=== PATIENT | female | born 1945 | race Caucasian/White ===

== ENCOUNTER 2020-09-09 07:51 | Outpatient (REF) | payer MEDICARE, OTHER, SELFPAY ==
--- NOTE | 2020-09-09 | MM_ITS ---
EXAMINATION: BONE DENSITOMETRY CLINICAL INDICATION: Osteoporosis. COMPARISON: Previous BD dated 05/07/2016 and baseline BD dated 02/18/2011. TECHNIQUE: Using a [employer] DXA System (software version: 13.1) manufactured by [employer], dual-energy x-ray absorptiometry was performed of the lumbar spine and right hip. Patient with IM daniel in left femur. The images are of good technical quality. Summary results are attached. FINDINGS: AP SPINE L1-L3 (excluding L4): The data of L1-L4 has been changed to exclude the L4 vertebral body, because degenerative changes at this level may cause overestimation of lumbar spine density. Current: BMD 1.069 g/cm2, Z-score 1.2, T-score -0.8, normal, 0.9% increase from previous, 1.4% decrease from baseline (<5% change is not significant). Prior: BMD 1.059 g/cm2. Baseline: BMD 1.084 g/cm2. RIGHT FEMUR, NECK: Current: BMD 0.832 g/cm2, Z-score 0.5, T-score -1.5, osteopenia. Prior: BMD 0.844 g/cm2. Baseline: BMD 0.872 g/cm2. RIGHT FEMUR, TOTAL: Current: BMD 0.783 g/cm2, Z-score 0.0, T-score -1.8, osteopenia, 11.6% decrease from previous, 14.7% decrease from baseline (<5% change is not significant). Prior: BMD 0.886 g/cm2. Baseline: BMD 0.918 g/cm2. IDENTIFIED RISK FACTORS: Early menopause, height loss, bilateral oophorectomy, history of fracture (adult), recurrent falls, secondary osteoporosis. HISTORY OF FRACTURE: Femur, ankle. No insufficiency fracture reported. MEDICATIONS: Calcium or multivitamin. Vitamin D. MM/XR DEXA axial skeleton IMPRESSION: 1. DIAGNOSIS: Osteopenia based on the lowest T-score value of -1.8 in the total femur applying World Health Organization criteria. 2. 10-YEAR FRACTURE RISK PREDICTION, FRAX: Major osteoporotic fracture (clinical spine, forearm, hip or shoulder) 15.5%. Hip fracture 2.6%. 3. Treatment Recommendations: NOF guidelines recommend consideration for treatment in postmenopausal women and men age 50 and older presenting with the following: -A hip or vertebral (clinical or morphometric) fracture. -T-score less than or equal to -2.5 at the femoral neck or spine after appropriate evaluation to exclude secondary causes. -Low bone mass at the hip or spine and a 10-year fracture probability by FRAX of greater than or equal to 3% for hip fracture or greater than or equal to 20% for major osteoporotic fracture based on the [place] adapted WHO algorithm. 4. Other Recommendations: All treatment decisions require clinical judgment and consideration of individual patient factors, including patient preferences, comorbidities, previous drug use, risk factors not captured in the FRAX model (e.g. frailty, falls, vitamin D deficiency, increased bone turnover, interval significant decline in bone density) and possible under or overestimation of fracture risk by FRAX. Additional medical evaluation for secondary cause of low bone mineral density may be appropriate. FUTURE SCAN RECOMMENDATION: People with diagnosed cases of osteoporosis or at high risk for fracture should have regular bone mineral density tests. For patients eligible for Medicare, routine testing is allowed once every 2 years. The testing frequency can be increased to one year for patients who have rapidly progressing disease, those who are receiving or discontinuing medical therapy to restore bone mass, or have additional risk factors.
== END 2020-09-09 07:52 | disposition home or self-care (01) ==
LOC: HO.MAMMO 07:51
PROVIDERS: PCP Internal Medicine; Visit Provider Internal Medicine Endocrinology, Diabetes & Metabolism
DX: M81.0 Age-related osteoporosis without current pathological fracture (principal)
CPT/HCPCS: 77080

== ENCOUNTER → 2020-09-15 08:12 | Outpatient (BNVA) | payer MEDICARE, OTHER, SELFPAY | PROVIDERS: PCP Internal Medicine; Visit Provider Internal Medicine Endocrinology, Diabetes & Metabolism | DX: Z13.89 Encounter for screening for other disorder (principal) | CPT/HCPCS: Q3014 ==

== ENCOUNTER 2021-01-08 07:15 | Outpatient (REF) | payer MEDICARE, OTHER, SELFPAY ==
[2021-01-08 08:12] LABS: Basophils Percent Auto 0.3 % (0-2); Imm Gran Abs Auto 0.01 X10*3/uL (0.00-0.03); Imm Gran Pct Auto 0.3 % (0.0-0.4); Mean Corpuscular Volume 94.8 fL (80-98); Monocytes Absolute Auto 0.4 X10*3/uL (0.1-1.2); Red Cell Distribution Width 12.7 % (11.0-16.0)
[2021-01-08 08:13] LABS: Eosinophils Percent Auto 0.3 % (0-4); Hematocrit 39.9 % (37-47); Hemoglobin 13.8 g/dl (12.0-16.0); Lymphocytes Absolute Auto 1.2 X10*3/uL (1.2-4.9); Lymphocytes Percent Auto 30.4 % (20-40); Mean Corpuscular HGB Conc 34.6 g/dl (31.0-35.0); Mean Corpuscular Hemoglobin 32.8 pg (27.0-33.0); Mean Platelet Volume 10.6 fL (9.4-12.3); Monocytes Percent Auto 8.9 % (2-11); Neutrophils Absolute Auto 2.4 X10*3/uL (2.0-8.3); Neutrophils Percent Auto 59.8 % (45-73); Red Blood Count 4.21 X10*6/uL (4.20-5.50)
[2021-01-08 08:15] LABS: MANUAL DIFF FLAG NO
[2021-01-08 08:40] LABS: Alanine Aminotransferase 26 U/L (0-31); Albumin Level 4.6 g/dL (3.5-5.0); Alkaline Phosphatase 77 U/L (39-117); Anion Gap 14 (12-20); Aspartate Amino Transferase 37 U/L (5-31); Bilirubin Total 1.2 mg/dL (0.0-1.0); Blood Urea Nitrogen 10 mg/dL (9-16); Calcium 9.4 mg/dL (8.4-10.2); Carbon Dioxide 27 mmol/L (22-29); Chloride 104 mmol/L (96-108); Cholesterol 184 mg/dL; Estimated Glomerular Filt Rate > 60; Glucose Fasting 96 mg/dL (60-99); HDL Cholesterol 77 mg/dL; LDL Cholesterol Calculated 96 mg/dl; Sodium 141 mmol/L (135-145); Total Protein 7.1 g/dL (6.5-8.0); Triglycerides 59 mg/dL
[2021-01-08 08:50] LABS: Platelet Count 131 X10*3/uL (160-400)
[2021-01-08 09:04] LABS: Free T4 (Free Thyroxine) 0.79 ng/dL (0.71-1.85); Thyroid Stimulating Hormone 0.92 uIU/mL (0.32-4.0); Vitamin D 25-OH Total 63.8 ng/mL (>30)
[2021-01-09 18:06] LABS: Folate > 20.0 ng/mL (> or = 4.0); Vitamin B12 268 pg/mL (200-900)
[2021-01-13 21:51] LABS: N-Telopeptide 44 (see note); NTXCreaRU 104 mg/dL (20-275)
== END 2021-01-08 07:16 | disposition home or self-care (01) ==
LOC: HO.LAB 07:15
PROVIDERS: Absent Provider Internal Medicine Endocrinology, Diabetes & Metabolism; PCP Internal Medicine; Visit Provider Internal Medicine
DX: D47.2 Monoclonal gammopathy (principal); I10 Essential (primary) hypertension; M81.0 Age-related osteoporosis without current pathological fracture; E04.2 Nontoxic multinodular goiter; E78.00 Pure hypercholesterolemia, unspecified
CPT/HCPCS: 36415; 80053; 80061; 82306; 82523; 82607; 82746; 84439; 84443; 85025

== ENCOUNTER 2021-02-19 12:19 | Outpatient (REF) | payer MEDICARE, OTHER, SELFPAY ==
--- NOTE | ~2021-02-19 | US_ITS ---
EXAMINATION: US THYROID CLINICAL INFORMATION: Follow up nodules. COMPARISON: None TECHNIQUE: Linear transducer grayscale and color Doppler examination with attention to the region of the thyroid. FINDINGS: SIZE: Measurements of the thyroid lobes and nodules are given in sagittal, anteroposterior and transverse dimensions, respectively. Right Thyroid Lobe: 4.0 x 1.7 x 1.6 cm, volume 5.9 mL. Previously, it measured 3.8 x 1.4 x 1.7 cm and volume 4.5 mL. Parenchyma: The gland echotexture is homogeneous. Thyroid vascularity is increased. Left Thyroid Lobe: 4.5 x 1.1 x 1.2 cm, volume 3.1 mL. Previously, it measured 4.3 x 1.1 x 1.2 cm and volume 2.8 mL Parenchyma: The gland echotexture is homogeneous. Thyroid vascularity is hypervascular. Isthmus: 0.2 cm in maximum AP dimension. Estimated total number of nodules greater than or equal to 1 cm: one. Pilot Teacher nodules are described as follows: 1. Location: Right lower pole. Size: 2.1 x 1.4 x 1.8 cm, volume 2.8 mL. Previous: 1.9 x 1.5 x 1.5 cm and volume 2.2 mL Nodule characteristics: Composition: Solid (2). Echogenicity: Isoechoic (1). Shape: Not taller than wide (0). Margins: Smooth (0). Echogenic Foci: None (0). ACR TI-RADS total points: 3. ACR TI-RADS category: 3. 2. Location: Left lateral midpole. Size: 0.4 x 0.2 x 0.4 cm, volume 0.02 mL. Previous: 0.3 x 0.2 x 0.4 cm and volume 0.01 mL Nodule characteristics: Composition: Solid (2). Echogenicity: Hypoechoic (1). Shape: Not taller than wide (0). Margins: Smooth (0). Echogenic Foci: None (0). ACR TI-RADS total points: 4. ACR TI-RADS category: 4. NODES: No lymphadenopathy is seen in the tissue surrounding the thyroid gland. US/US thyroid IMPRESSION: 1. Two solitary nodules in the right lower pole and left midpole. The largest nodule at the right lower pole shows very minimal increase in size but no change in the echotexture, margins or composition. This nodule has been previously biopsied on 03/27/2020. 2. Recommend continued follow up. ACR TI-RADS RECOMMENDATION REFERENCE: Ultrasound-guided fine-needle aspiration, followup ultrasound, no further follow up. * TR1 (0 point) and TR 2 (2 points): No FNA or follow up. * TR3 (3 points): FNA if more than or equal to 2.5 cm in maximum dimension, follow up ultrasound in 1, 3 and 5 years if 1.5 to 2.4 cm in maximum dimension. * TR4 (4-6 points): FNA if more than or equal to 1.5 cm in maximum dimension, follow up ultrasound in 1, 2, 3 and 5 years if 1 to 1.4 cm in maximum dimension. * TR5 (more than or equal to 7 points): FNA if more than or equal to 1 cm in maximum dimension, follow up ultrasound every year for 5 years if 0.5 to 0.9 cm in maximum dimension. * TR3, TR4 or TR5 nodules that are below the size threshold for follow up receive no follow up.
== END 2021-02-19 12:20 | disposition home or self-care (01) ==
LOC: HO.US 12:19
PROVIDERS: Visit Provider Internal Medicine Endocrinology, Diabetes & Metabolism
DX: E04.2 Nontoxic multinodular goiter (principal)
CPT/HCPCS: 76536

== ENCOUNTER → 2021-03-16 08:19 | Outpatient (BNVA) | payer MEDICARE, OTHER, SELFPAY | PROVIDERS: PCP Internal Medicine; Referring Provider Internal Medicine; Visit Provider Internal Medicine Endocrinology, Diabetes & Metabolism | DX: E04.2 Nontoxic multinodular goiter (principal); M81.0 Age-related osteoporosis without current pathological fracture | CPT/HCPCS: 99212 ==

== ENCOUNTER 2021-03-16 08:52 | Outpatient (REF) | payer MEDICARE, OTHER, SELFPAY ==
[2021-03-16 10:44] LABS: Albumin Level 4.2 g/dL (3.5-5.0); Calcium 9.5 mg/dL (8.4-10.2)
[2021-03-16 11:13] LABS: Free T4 (Free Thyroxine) 0.95 ng/dL (0.71-1.85); Thyroid Stimulating Hormone 0.71 uIU/mL (0.32-4.0); Vitamin D 25-OH Total 62.1 ng/mL (>30)
[2021-03-21 09:57] LABS: N-Telopeptide 29 (see note); NTXCreaRU 71 mg/dL (20-275)
== END 2021-03-16 08:53 | disposition home or self-care (01) ==
LOC: HO.10HDL 08:52
PROVIDERS: Visit Provider Internal Medicine Endocrinology, Diabetes & Metabolism
DX: M81.0 Age-related osteoporosis without current pathological fracture (principal); E04.2 Nontoxic multinodular goiter; Z79.899 Other long term (current) drug therapy
CPT/HCPCS: 36415; 82040; 82306; 82310; 82523; 84439; 84443; 99212

== ENCOUNTER 2021-04-30 07:21 | Outpatient (REF) | payer MEDICARE, OTHER, SELFPAY ==
--- NOTE | ~2021-04-30 | MM_ITS ---
EXAMINATION: MM SCREENING DIGITAL BREAST TOMOSYNTHESIS, BILATERAL CLINICAL INFORMATION: Screening. Asymptomatic. The lifetime risk of breast cancer based on the Tyrer-Cuzick Model is 2.9%. COMPARISON: Mammography: April 25, 2020 and studies dating back to November 17, 2013 TECHNIQUE: Digital breast tomosynthesis is performed in both the craniocaudal and mediolateral oblique views along with computer-aided detection (CAD). Synthesized 2D images are generated from the tomosynthesis. FINDINGS: There are scattered areas of fibroglandular density (ACR BI-RADS breast composition Category b). There are no significant masses, abnormal calcifications, or other abnormalities. MM/MM tomosynthesis screening BI IMPRESSION: There are no significant changes from prior study. ASSESSMENT: BI-RADS 1: Negative RECOMMENDATION: Routine annual mammography screening. This patient's information was entered into a reminder system with a target due date for their next mammogram.
== END 2021-04-30 07:22 | disposition home or self-care (01) ==
LOC: HO.MAMMO 07:21
PROVIDERS: PCP Internal Medicine; Visit Provider Internal Medicine
DX: Z12.31 Encounter for screening mammogram for malignant neoplasm of breast (principal)
CPT/HCPCS: 77063; 77067

== ENCOUNTER 2021-06-25 09:51 | Outpatient (REF) | payer MEDICARE, OTHER, SELFPAY ==
[2021-06-25 10:13] LABS: COVID-19 Test Positive (Negative); IDNOW Serial# 08D9AD1C
== END 2021-06-25 09:52 | disposition home or self-care (01) ==
LOC: HO.LAB 09:51
PROVIDERS: PCP Internal Medicine; Visit Provider Internal Medicine
DX: Z20.822 Contact with and (suspected) exposure to COVID-19 (principal)
CPT/HCPCS: 36415; 87635; C9803

== ENCOUNTER 2021-07-03 12:39 | Outpatient (REF) | payer MEDICARE, OTHER, SELFPAY ==
[2021-07-03 14:33] LABS: COVID-19 Test Positive (Negative)
== END 2021-07-03 12:40 | disposition home or self-care (01) ==
LOC: HO.LAB 12:39
PROVIDERS: PCP Internal Medicine; Visit Provider Internal Medicine
DX: Z20.822 Contact with and (suspected) exposure to COVID-19 (principal)
CPT/HCPCS: 36415; 87635; C9803

== ENCOUNTER 2021-07-07 12:52 | Outpatient (REF) | payer MEDICARE, OTHER, SELFPAY ==
[2021-07-07 13:51] LABS: COVID-19 Test Positive (Negative)
== END 2021-07-07 12:53 | disposition home or self-care (01) ==
LOC: HO.LAB 12:52
PROVIDERS: PCP Internal Medicine; Visit Provider Internal Medicine
DX: Z20.822 Contact with and (suspected) exposure to COVID-19 (principal)
CPT/HCPCS: 36415; 87635

== ENCOUNTER → 2022-03-16 13:49 | Outpatient (BNVA) | payer MEDICARE, OTHER, SELFPAY | PROVIDERS: PCP Internal Medicine; Visit Provider Internal Medicine Endocrinology, Diabetes & Metabolism | DX: E04.2 Nontoxic multinodular goiter (principal); M81.0 Age-related osteoporosis without current pathological fracture | CPT/HCPCS: 99212 ==

== ENCOUNTER 2022-05-04 12:33 | Outpatient (REF) | payer MEDICARE, OTHER, SELFPAY ==
--- NOTE | ~2022-05-04 | MM_ITS ---
EXAMINATION: MM SCREENING DIGITAL BREAST TOMOSYNTHESIS, BILATERAL CLINICAL INFORMATION: Screening. Asymptomatic. The lifetime risk of breast cancer based on the Tyrer-Cuzick Model is 3%. COMPARISON: Mammography: 04/30/2021, 04/25/2020, 04/20/2019 TECHNIQUE: Digital breast tomosynthesis is performed in both the craniocaudal and mediolateral oblique views along with computer-aided detection (CAD). Synthesized 2D images are generated from the tomosynthesis. FINDINGS: There are scattered areas of fibroglandular density (ACR BI-RADS breast composition Category b). There are no significant masses, abnormal calcifications, or other abnormalities. Parenchymal pattern is similar to prior studies. MM/MM tomosynthesis screening BI IMPRESSION: No mammographic evidence of malignancy. ASSESSMENT: BI-RADS 1: Negative RECOMMENDATION: Routine annual mammography screening. This patient's information was entered into a reminder system with a target due date for their next mammogram.
== END 2022-05-04 12:34 | disposition home or self-care (01) ==
LOC: HO.MAMMO 12:33
PROVIDERS: Visit Provider Internal Medicine Endocrinology, Diabetes & Metabolism
DX: Z12.31 Encounter for screening mammogram for malignant neoplasm of breast (principal)
CPT/HCPCS: 77063; 77067

== ENCOUNTER 2022-06-08 16:21 | Outpatient (REF) | payer MEDICARE, OTHER, SELFPAY ==
--- NOTE | ~2022-06-08 | US_ITS ---
EXAMINATION: US THYROID CLINICAL INFORMATION: Nontoxic multinodular goiter. COMPARISON: Ultrasound soft tissue head/neck thyroid dated 02/19/2021 and 01/08/2020. TECHNIQUE: Linear transducer grayscale and color Doppler examination with attention to the region of the thyroid. FINDINGS: SIZE: Measurements of the thyroid lobes and nodules are given in sagittal, anteroposterior and transverse dimensions respectively. Right Thyroid Lobe: 3.3 x 1.8 x 1.2 cm, volume 3.6 mL. Previously 4.0 x 1.7 x 1.6 cm, volume 5.9 mL. Parenchyma: The gland echotexture is homogeneous. Thyroid vascularity is normal. Left Thyroid Lobe: 4.2 x 1.0 x 1.1 cm, volume 2.6 mL. Previously 4.5 x 1.1 x 1.2 cm, volume 3.1 mL. Parenchyma: The gland echotexture is homogeneous. Thyroid vascularity is increased. Isthmus: 0.3 cm in maximum AP dimension. Previously 0.2 cm. Estimated total number of nodules greater than or equal to 1 cm: 1. Ophthalmic Lens Inspector nodules are described as follows: 1. Location: Right lateral inferior. Size: 1.8 x 1.2 x 1.6 cm, volume 1.8 mL. Previously: 2.1 x 1.4 x 1.8 cm, volume 2.8 mL. Nodule characteristics: Composition: Solid/almost completely solid (2). Echogenicity: Isoechoic (1). Shape: Not taller than wide (0). Margins: Smooth (0). Echogenic Foci: None (0). ACR TI-RADS total points: 3. Previous: 3. ACR TI-RADS category: 3. Previous: 3. Significant change in size (>/= 20% in 2 dimensions and minimal increase of 2 mm or 50% or greater increase in volume): No change. Change in features: No change. Change in ACR TI-RADS risk category: No change. 2. Location: Left mid. Size: 0.3 x 0.2 x 0.3 cm, volume 0.01 mL. Previously: 0.4 x 0.2 x 0.4 cm, volume 0.02 mL. Nodule characteristics: Composition: Mixed cystic and solid (1). Echogenicity: Hypoechoic (2). Shape: Not taller than wide (0). Margins: Smooth (0). Echogenic Foci: None (0). ACR TI-RADS total points: 3. Previous: 4. ACR TI-RADS category: 3. Previous: 4. Significant change in size (>/= 20% in 2 dimensions and minimal increase of 2 mm or 50% or greater increase in volume): No change. Change in features: No change. Change in ACR TI-RADS risk category: Minimal change but nonsuspicious. NODES: No lymphadenopathy is seen in the tissue surrounding the thyroid gland. US/US thyroid IMPRESSION: Small thyroid lobes with small nodules essentially unchanged from previous study. ACR TI-RADS RECOMMENDATION REFERENCE: Ultrasound-guided fine-needle aspiration, followup ultrasound, no further follow up. * TR1 (0 point) and TR 2 (2 points): No FNA or follow up * TR3 (3 points): FNA if more than or equal to 2.5 cm in maximum dimension, followup ultrasound in 1, 3 and 5 years if 1.5 to 2.4 cm in maximum dimension. * TR4 (4-6 points): FNA if more than or equal to 1.5 cm in maximum dimension, followup ultrasound in 1, 2, 3 and 5 years if 1 to 1.4 cm in maximum dimension. * TR5 (more than or equal to 7 points): FNA if more than or equal to 1 cm in maximum dimension, followup ultrasound every year for 5 years if 0.5 to 0.9 cm in maximum dimension. * TR3, TR4 or TR5 nodules that are below the size threshold for follow up receive no follow up.
== END 2022-06-08 16:22 | disposition home or self-care (01) ==
LOC: HO.US 16:21
PROVIDERS: Visit Provider Internal Medicine Endocrinology, Diabetes & Metabolism
DX: E04.2 Nontoxic multinodular goiter (principal)
CPT/HCPCS: 76536

== ENCOUNTER 2022-10-08 14:35 | Outpatient (REF) | payer MEDICARE, OTHER, SELFPAY ==
--- NOTE | ~2022-10-08 | MM_ITS ---
EXAMINATION: BONE DENSITOMETRY CLINICAL INDICATION: Age-related osteoporosis without current pathological fracture. COMPARISON: Previous BD dated 09/05/2018, left hip; 05/07/2016, spine and baseline BD dated 02/18/2011. TECHNIQUE: Using a [employer] DXA System (software version: 13.1) manufactured by [employer], dual-energy x-ray absorptiometry was performed of the lumbar spine and left hip. The images are of good technical quality. Summary results are attached. FINDINGS: AP SPINE L1-L4: Current: BMD 1.223 g/cm2, Z-score 2.5, T-score 0.4, normal, 12.2% increase from previous, 7.2% increase from baseline (<5% change is not significant). Prior: BMD 1.090 g/cm2. Baseline: BMD 1.141 g/cm2. LEFT FEMUR, NECK: Current: BMD 0.708 g/cm2, Z-score -0.2, T-score -2.4, osteopenia. Prior: BMD 0.942 g/cm2. Baseline: BMD 0.903 g/cm2. LEFT FEMUR, TOTAL: Current: BMD 0.703 g/cm2, Z-score -0.4, T-score -2.4, osteopenia, 14.2% decrease from previous, 22.7% decrease from baseline (<5% change is not significant). Prior: BMD 0.819 g/cm2. Baseline: BMD 0.909 g/cm2. IDENTIFIED RISK FACTORS: Osteoporosis, height loss, history of fracture (adult), hysterectomy, bilateral oophorectomy. Early menopause, secondary osteoporosis. HISTORY OF FRACTURE: Femur. Ankle. MEDICATIONS: Bisphosphonates. Calcium supplements or multivitamin, vitamin D. MM/XR DEXA axial skeleton IMPRESSION: 1. DIAGNOSIS: Osteopenia based on the lowest T-score value of -2.4 in the femoral neck and total femur applying World Health Organization criteria. 2. 10-YEAR FRACTURE RISK PREDICTION, FRAX: Not performed in this patient on estrogen or bone building treatments. 3. Treatment Recommendations: NOF guidelines recommend consideration for treatment in postmenopausal women and men age 50 and older presenting with the following: -A hip or vertebral (clinical or morphometric) fracture. -T-score less than or equal to -2.5 at the femoral neck or spine after appropriate evaluation to exclude secondary causes. -Low bone mass at the hip or spine and a 10-year fracture probability by FRAX of greater than or equal to 3% for hip fracture or greater than or equal to 20% for major osteoporotic fracture based on the [place] adapted WHO algorithm. 4. Other Recommendations: All treatment decisions require clinical judgment and consideration of individual patient factors, including patient preferences, comorbidities, previous drug use, risk factors not captured in the FRAX model (e.g. frailty, falls, vitamin D deficiency, increased bone turnover, interval significant decline in bone density) and possible under or overestimation of fracture risk by FRAX. Additional medical evaluation for secondary cause of low bone mineral density may be appropriate. FUTURE SCAN RECOMMENDATION: People with diagnosed cases of osteoporosis or at high risk for fracture should have regular bone mineral density tests. For patients eligible for Medicare, routine testing is allowed once every 2 years. The testing frequency can be increased to one year for patients who have rapidly progressing disease, those who are receiving or discontinuing medical therapy to restore bone mass, or have additional risk factors.
== END 2022-10-08 14:36 | disposition home or self-care (01) ==
LOC: HO.MAMMO 14:35
PROVIDERS: PCP Internal Medicine; Visit Provider Internal Medicine
DX: M81.0 Age-related osteoporosis without current pathological fracture (principal)
CPT/HCPCS: 77080

== ENCOUNTER → 2023-03-16 13:40 | Outpatient (BNVA) | payer MEDICARE, OTHER, SELFPAY | PROVIDERS: PCP Internal Medicine; Visit Provider Internal Medicine Endocrinology, Diabetes & Metabolism | DX: E04.2 Nontoxic multinodular goiter (principal); M81.0 Age-related osteoporosis without current pathological fracture | CPT/HCPCS: 99212 ==

== ENCOUNTER 2023-06-17 13:11 | Outpatient (AMB) | payer MEDICARE, OTHER, SELFPAY ==
[2023-06-17 13:14] VITALS: BP 122/78; PULSE 78; O2SAT 98; BMI 19.6
--- NOTE | 2023-06-17 13:14 | A.OFFPC_ITS ---
Vital Signs 06/17/23 13:14 Height 5 ft 3 in Weight 110 lb 10.753 oz BMI 19.6 BP 122/78 Blood Pressure Location Lt brachial Position Sitting Pulse 78 Pulse Source Pulse Oximeter Temp Source Skin Pulse Oximetry (%) 98 Oxygen Delivery Method Room Air Intake Visit Reasons: s/p fall Intake Note: pt states fall [id number] ago causing lower back pain Property Specialist Required: No Allergies horseradish [HORSERADISH] Allergy (Severe, Verified 06/17/23 13:29) Involuntary Spasms erythromycin base [ERYTHROMYCIN BASE] Allergy (Intermediate, Verified 06/17/23 13:29) Hives naproxen [From Aleve] Allergy (Intermediate, Verified 06/17/23 13:29) Hives beet [BEET] Allergy (Unknown, Verified 06/17/23 13:29) Unknown milk [MILK] Allergy (Unknown, Verified 06/17/23 13:29) Stomach pain, Vomits nut - unspecified [nut] Allergy (Unknown, Verified 06/17/23 13:29) Unknown raspberry Allergy (Unknown, Verified 06/17/23 13:29) Unknown sunflower seed Allergy (Unknown, Verified 06/17/23 13:29) Unknown aspirin [ASA] Adverse Reaction (Intermediate, Verified 06/17/23 13:29) Nose Bleed TURNIP Allergy (Unknown, Uncoded 06/17/23 13:29) Unknown Medication List - Last Reconciled 06/17/23 by MITA Magaña alendronate 70 mg PO QWEEK 90 days calcium carbonate (Calcium) 600 mg PO BID 90 days cholecalciferol (vitamin D3) 50 mcg PO DAILY 90 days epinephrine (EpiPen 2-Reid) 0.3 mg (0.3 mL) IM Q4H PRN lisinopril 20 mg PO DAILY vitamins A,C,B-[id number]-[id number] 4,296 mcg-226 mg-90 mg (PreserVision AREDS) 1 cap PO BID Tobacco use date assessed: 06/17/23 Fall risk assessment: 1 Fall in past year Last assessed Fall Risk: 06/17/23 Dental Screening Dental Screen Date: 06/17/23 HPI s/p fall HPI Details Patient is a 77-year-old female presents today for an office visit after sustaining a fall 2 weeks ago[address] of [address] Kellogg. Medical history significant for osteoporosis-followed by endocrinology, hypertension, MGUS among others. Patient reports that she was trying to feed her dogs and then fell on her bilateral buttocks and started with low back pain. She denies hitting her head, no loss of consciousness. She is not on blood thinner. She reports that she was taking Tylenol or ibuprofen with improvement in her pain. She reports pain is not bed today, she did not have to take anything for pain today or yesterday. Reports that pain is on her lower back across back, pain does not radiate, no numbness or tingling, no changes in bowel/bladder. She reports that pain is improving. Patient is accompanied by her who reports that patient drinks whiskey 1 3/4 L/week and would like treatment for this. [facility] Medical History Coronavirus infection History of fracture of femur Hypertension Impaired glucose tolerance Knee osteoarthritis MGUS (monoclonal gammopathy of unknown significance) Non-toxic multinodular goiter Osteoporosis Screening for diabetes mellitus Surgical History History of ankle surgery History of cataract surgery History of colonoscopy History of knee replacement procedure of right knee History of open reduction and internal fixation (ORIF) procedure History of tonsillectomy History of total left knee replacement Hx of hysterectomy Hx of removal of cyst Status post fine needle aspiration Family History Father HTN (hypertension) Mother No problems noted. Social History Housing: House Alcohol intake: current Alcohol intake frequency: a few times a week Patient Tobacco Use Status: Never used Tobacco e-Cigarette/Vaping Use: Never Used Second Hand Smoke Exposure: No service: No Current occupational status: employed and retired Cognitive needs: No Hearing needs: No Vision needs: Yes Questionnaire PHQ-9 Over the last 2 weeks, how often have you been bothered by any of the following problems? 1. Little interest or pleasure in doing things: not at all 2. Feeling down, depressed, or hopeless: not at all 3. Trouble falling or staying asleep, or sleeping too much: not at all 4. Feeling tired or having little energy: not at all 5. Poor appetite or overeating: not at all 6. Feeling bad about yourself - or that you are a failure or have let yourself or your family down: not at all 7. Trouble concentrating on things, such as reading the newspaper or watching television: not at all 8. Moving or speaking so slowly that other people could have noticed. Or the opposite - being so fidgety or restless that you have been moving around a lot more than usual: not at all 9. Thoughts that you would be better off or of hurting yourself in some way: not at all Total score: 0 Depression Screening Interpretation: Negative 90066 - PHQ-9 Billing: Yes Source: Developed by Drs. Jaguar Fernández, Lima Hauser, Bola See and colleagues, with an educational selena from [employer]. Thrive Questionnaire Date Thrive assessed: 12/16/22 AUDIT C Alcohol Use Questionnaire (AUDIT-C) 1. How often do you have a drink containing alcohol?: 4 or more times a week 2. How many drinks containing alcohol do you have on a typical day when you are drinking?: 1 or 2 3. How often do you have six or more drinks on one occasion?: Never Total Score: 4 Score Reviewed/Action Taken: Yes JOSHUA-7 AMB Questionnaire JOSHUA-7 Date JOSHUA - 7 assessed: 12/16/22 Source: Developed by Drs. Jaguar Fernández, oBla Sandra and colleagues, with an educational selena from [employer]. Review of Systems Const Denies body aches, Denies chills, Denies fever(s) and Denies headache(s) Eyes Denies change in vision ENT Denies dizziness, Denies otalgia, Denies headache(s), Denies nasal discharge, Denies sinus pain and Denies sore throat Card Denies chest pain, Denies edema, Denies lightheadedness and Denies dyspnea Resp Denies cough, Denies dyspnea and Denies wheezing GI Denies abdominal pain Denies dysuria Musc Reports back pain, Denies myalgias, Denies numbness and Denies tingling Skin/Breast Denies rash Neuro Denies dizziness, Denies headache(s), Denies numbness and Denies tingling Aller/Immun Denies wheezing Physical exam (Primary Care) Vital Signs: Last Vital Signs Pulse 78 06/17/23 13:14 BP 122/78 06/17/23 13:14 Pulse Ox 98 06/17/23 13:14 Oxygen Delivery Method Room Air 06/17/23 13:14 BMI result Body Mass Index 19.6 Tobacco/Smoking Status: Tobacco use Status Tobacco use date assessed 06/17/23 06/17/23 13:21 Patient Tobacco Use Status Never used Tobacco 06/17/23 13:21 e-Cigarette/Vaping Use Never Used 06/17/23 13:21 PHQ-9: PHQ-9 Score PHQ-9: Total score 0 06/17/23 13:21 Depression Screening Interpretation: Negative Thrive Assessment: Date of Thrive Assessment Date Thrive assessed 12/16/22 06/17/23 13:21 Const Other: Patient ambulates with a cane General: cooperative and no acute distress Orientation/consciousness: patient oriented x3 HENMT Head: Yes normocephalic and Yes atraumatic Face and sinus: Yes sinuses nontender Mouth: oropharynx normal and moist mucous membranes Throat: Yes posterior oropharynx normal Eyes General: appearance normal, both eyes and all related structures Pupils: Equal, round and reactive pupils present Neck Neck: Yes normal visual inspection and Yes full ROM Resp Effort & Inspection: normal respiratory effort and able to speak in complete sentences Auscultation: clear to auscultation bilaterally, no crackles, no rales, no rhonchi and no wheezes Cardio Rate: regular rate Rhythm: regular rhythm Heart sounds: S1 normal heart sound present and S2 normal heart sound present GI Auscultation: normal bowel sounds General: No CVA tenderness Back/Spine/Pelvis Back: No CVA tenderness Thoracic/Lumbar Spine: thoracic and lumbar spine normal to inspection, thoraco- lumbar ROM normal, No paraspinal muscle tenderness, No thoracic spinal tenderness and No lumbar spinal tenderness Skin General skin exam: no rashes or lesions noted Neuro General: patient oriented x3 Cranial nerves: Yes Equal, round and reactive pupils present Gait exam (Neuro): Normal gait present Extrem General: Yes full ROM and No edema Assessment and Plan Assessment & Plan (1) Alcohol abuse: Code(s): F10.10 - Alcohol abuse, uncomplicated Plan: Referral to comprehensive care clinic (2) Low back pain: Code(s): M54.50 - Low back pain, unspecified Plan: Physical exam normal in the office today. Patient reports that low back pain is improving. Will obtain x-ray to rule out any fractures. Patient is to continue [id number] Tylenol 1000 mg every 8 hours p.r.n.. Will provide patient with lidocaine patch p.r.n.. Will hold off on PT referral until reviewing x-ray results. Patient agreed with the plan. Keep appointment with PCP as scheduled or follow-up sooner as needed. Orders: Orders XR lumbar spine 4V min Today M54.50 - Low back pain, unspecified Referrals Addiction Medicine Referral F10.10 - Alcohol abuse, uncomplicated Medications: New lidocaine 4% (Aspercreme (lidocaine)) 1 patch topical DAILY PRN 30 ea 0RF pain M54.50 - Low back pain, unspecified Coding Level of Care Code Est Pt Level 3 (76170) Diagnoses Alcohol abuse F10.10 Low back pain M54.50
== END 2023-06-17 13:51 | disposition home or self-care (01) ==
PROVIDERS: PCP Internal Medicine; Visit Provider Nurse Practitioner Family
DX: F10.10 Alcohol abuse, uncomplicated (principal); M54.50 Low back pain, unspecified
CPT/HCPCS: 99213

== ENCOUNTER 2023-06-17 13:51 | Outpatient (REF) | payer MEDICARE, OTHER, SELFPAY ==
--- NOTE | ~2023-06-17 | XR_ITS ---
EXAMINATION: XR LUMBOSACRAL SPINE WITH OBLIQUES CLINICAL INFORMATION: Low back pain. COMPARISON: Lumbar spine radiographs dated 04/02/2019. TECHNIQUE: AP, both oblique, and lateral views of the lumbar spine. Lateral view of the lumbosacral junction. FINDINGS: There is normal lumbar lordosis and spinal alignment. Mild to moderate multilevel degenerative changes are seen most pronounced at L5-S1. Approximate 40% superior plate compression deformities are seen at T12 and L1. Mild thoracolumbar levoscoliosis is seen. Bilateral facet arthropathy seen at L5-S1. The soft tissues are unremarkable. XR/XR lumbar spine 4V min IMPRESSION: 1. Mild to moderate multilevel degenerative changes and mild thoracolumbar levoscoliosis. 2. T12 and L1 superior plate compression deformities are of indeterminate age, but were not seen on the 2019 study. Overall the appearance is not acute, but if the patient is experiencing acute pain, MRI may be helpful to better assess acuity.
== END 2023-06-17 13:52 | disposition home or self-care (01) ==
LOC: HO.XRAY 13:51
PROVIDERS: PCP Internal Medicine; Visit Provider Nurse Practitioner Family
DX: M54.50 Low back pain, unspecified (principal)
CPT/HCPCS: 72110

== ENCOUNTER 2023-08-02 13:57 | Outpatient (AMB) | payer MEDICARE, OTHER, SELFPAY ==
[2023-08-02 13:58] VITALS: BP 144/90; PULSE 86; O2SAT 96; BMI 20.4
--- NOTE | 2023-08-02 13:58 | AM.OFFVISMDC ---
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 Allergies horseradish [HORSERADISH] Allergy (Severe, Verified 08/02/23 14:15) Involuntary Spasms erythromycin base [ERYTHROMYCIN BASE] Allergy (Intermediate, Verified 08/02/23 14:15) Hives naproxen [From Aleve] Allergy (Intermediate, Verified 08/02/23 14:15) Hives beet [BEET] Allergy (Unknown, Verified 08/02/23 14:15) Unknown milk [MILK] Allergy (Unknown, Verified 08/02/23 14:15) Stomach pain, Vomits nut - unspecified [nut] Allergy (Unknown, Verified 08/02/23 14:15) Unknown raspberry Allergy (Unknown, Verified 08/02/23 14:15) Unknown sunflower seed Allergy (Unknown, Verified 08/02/23 14:15) Unknown aspirin [ASA] Adverse Reaction (Intermediate, Verified 08/02/23 14:15) Nose Bleed TURNIP Allergy (Unknown, Uncoded 08/02/23 14:15) Unknown Medication List - Last Reconciled 08/02/23 by MITA Magaña alendronate 70 mg PO QWEEK 90 days calcium carbonate (Calcium) 600 mg PO BID 90 days cholecalciferol (vitamin D3) 50 mcg PO DAILY 90 days epinephrine (EpiPen 2-Reid) 0.3 mg (0.3 mL) IM Q4H PRN lidocaine 4% (Aspercreme (lidocaine)) 1 patch topical DAILY PRN lisinopril 20 mg PO DAILY vitamins A,C,Z-kzrz-vthhow 4,296 mcg-226 mg-90 mg (PreserVision AREDS) 1 cap PO BID HPI [facility] HPI Details Patient is a 77-year-old female who presents today for subsequent wellness visit. Patient of Dr. Kellogg. Today we discussed patient's need for breast cancer screening and diabetes screening-patient has orders for blood work and she was encouraged to complete blood work. Up-to-date with immunizations. Bone density screen 09/2022 with osteopenia. [place] of care was reviewed with the patient and she was provided with a screening schedule. MOLST form is on file and patient was provided with a healthcare proxy form. [facility] Medical History Coronavirus infection Screening for diabetes mellitus MGUS (monoclonal gammopathy of unknown significance) Knee osteoarthritis Impaired glucose tolerance Hypertension History of fracture of femur Osteoporosis Non-toxic multinodular goiter Surgical History Status post fine needle aspiration History of colonoscopy History of cataract surgery History of open reduction and internal fixation (ORIF) procedure History of knee replacement procedure of right knee History of tonsillectomy History of total left knee replacement Hx of removal of cyst History of ankle surgery Hx of hysterectomy Family History Father HTN (hypertension) Mother No problems noted. Social History Housing: House Alcohol intake: current Alcohol intake frequency: a few times a week Patient Tobacco Use Status: Never used Tobacco e-Cigarette/Vaping Use: Never Used Second Hand Smoke Exposure: No service: No Current occupational status: employed and retired Cognitive needs: No Hearing needs: No Vision needs: Yes Questionnaire Medicare Wellness Checkup [age] What gender do you identify with?: female During the past 4 weeks, how much have you been bothered by emotional problems such as feeling anxious, depressed, irritable, sad or downhearted, and blue?: not at all During the past 4 weeks, has your physical & emotional health limited your social activities with family, friends, neighbors, or groups?: not at all During the past 4 weeks, how much bodily pain have you generally had?: mild pain During the past 4 weeks, was someone available to help you if you needed & wanted help?: no, not at all During the past 4 weeks, what was the hardest physical activity you could do for at least 2 minutes?: moderate Can you get to places out of walking distance without help? (For eg., can you travel alone on buses, taxis or drive your car?): Yes Can you go shopping for groceries or clothes without someone's help?: Yes Can you prepare your own meals?: Yes Can you do your housework without help?: Yes Because of any health problems, do you need the help of another person with your personal care needs such as eating, bathing, dressing or getting around the house?: No Can you handle your own money without help?: Yes During the past 4 weeks, how would you rate your health in general?: excellent During the past 4 weeks how have things been going for you?: very well; could hardly better Are you having difficulties driving your car?: no Do you always fasten your seat belt when you are in a car?: yes, usually During past 4 weeks, have you been bothered by the following: never: Sexual problems?, Trouble eating well?, Teeth or denture problems? and Problems using the telephone? and seldom: Falling or dizzy when standing up and Tiredness or fatigue? Have you fallen 2 or more times in the past year?: Yes Are you afraid of falling?: No Are you a smoker?: no During the past 4 weeks, how many drinks of wine, beer, or other alcoholic beverages did you have?: 2-5 drinks per week Do you exercise for about 20 minutes 3 or more times a week?: yes, most of the time Have you been given information to help with the following?: no: Hazards in your house that might hurt you? and no: Keeping track of your medications? How often do you have trouble taking medicines the way you have been told to take them?: I always take medicine as prescribed How confident are you that you can control & manage most of your health problems?: very confident What is your race?: White Mini Mental State Exam (MMSE) Orientation What is the (year) (season) (date) (day) (month)?: year, season, date, day and month Score Score: 5 Activity of Daily Living Bathing - sponge bath, tub bath or shower: receives no assistance (gets in/out by self, if usual bathing means Dressing - getting clothes from closets & drawers, including inner/outer garments & fasteners.: gets clothes & gets completely dressed without help Toileting - going to the 'toilet room' for urine/bowel elimination & cleaning self/arranging clothes: goes to toilet room, cleans self, arranges clothes without help Transfer: moves in & out of bed and chair without help (may use support object) Continence: controls urination/bowel movements completely by self Feeding: feeds self without help Total Score: 0 Information obtained from: patient Using telephone: independent Traveling: independent Shopping: independent Preparing meals: independent Housework: independent Taking medicine: independent Managing money: independent PHQ-9 Over the last 2 weeks, how often have you been bothered by any of the following problems? 1. Little interest or pleasure in doing things: not at all 2. Feeling down, depressed, or hopeless: not at all 3. Trouble falling or staying asleep, or sleeping too much: not at all 4. Feeling tired or having little energy: not at all 5. Poor appetite or overeating: not at all 6. Feeling bad about yourself - or that you are a failure or have let yourself or your family down: not at all 7. Trouble concentrating on things, such as reading the newspaper or watching television: not at all 8. Moving or speaking so slowly that other people could have noticed. Or the opposite - being so fidgety or restless that you have been moving around a lot more than usual: not at all 9. Thoughts that you would be better off or of hurting yourself in some way: not at all Total score: 0 Depression Screening Interpretation: Negative Depression Screening Done: Yes [id number] - PHQ-9 Billing: Yes Source: Developed by Drs. Jaguar Fernández, Lima Hauser, Bola See and colleagues, with an educational selena from [employer]. Physical Exam Vital Signs: Last Vital Signs Pulse 86 08/02/23 13:58 BP 144/90 H 08/02/23 13:58 Pulse Ox 96 08/02/23 13:58 Oxygen Delivery Method Room Air 08/02/23 13:58 BMI result Body Mass Index 20.4 Const General: cooperative and no acute distress Orientation/consciousness: patient oriented x3 HEENT Other: Whisper test: pass Neuro Other: Balance: Normal Get up and walk: unable to Romberg: negative Tandem gait: unable to General: patient oriented x3 Office Procedures Flu Questionnaire Does the patient have a severe egg allergy?: No Does the patient have severe life threatening allergies?: No Does the patient have a fever or illness today?: No Has the patient ever had Guillain-[place] Syndrome?: No Has the patient ever had any past reaction to a flu shot?: No Immunizations flu vacc [id number] 6mos up(PF) 60 mcg(15 mcgx4)/0.5 mL IM syringe Performing Provider: MITA Magaña [facility] Administered by: HALLE Soares on 08/02/23 14:13 Dose Route Admin Location Dispensed Lot Number Expiration Date NDC Supervisor Pipeline 0.5 mL IM Left Deltoid 0.5 mL [id number] 04/29/24 [id number] [employer] VIS Given Date VIS Provided VIS Publication Date 08/02/23 Single Vaccine 21 Eligibility Eligibility Date Funding Source Not [facility] Eligible 08/02/23 Private Assessment & Plan Assessment & Plan (1) Adult general medical exam: Code(s): Z00.00 - Encounter for general adult medical examination without abnormal findings (2) Screening for diabetes mellitus: Code(s): Z13.1 - Encounter for screening for diabetes mellitus Plan: Patient was encouraged to complete her blood work (3) Hypertension: Code(s): I10 - Essential (primary) hypertension Qualifiers: Hypertension type: essential hypertension Qualified Code(s): I10 - Essential (primary) hypertension Plan: Continue current treatment. Encouraged low-sodium diet and exercise as tolerated. (4) Osteoporosis: Comment: Bone density August Code(s): M81.0 - Age-related osteoporosis without current pathological fracture Qualifiers: Osteoporosis type: age-related Presence of current pathological fracture: without current pathological fracture Qualified Code(s): M81.0 - Age-related osteoporosis without current pathological fracture Plan: Patient is on alendronate and vitamin D with calcium. She is followed by an rn placement. (5) Non-toxic multinodular goiter: Comment: Thyroid biopsy in September 2016, February 2020 benign, ultrasound July 2022 Code(s): E04.2 - Nontoxic multinodular goiter Plan: Continue to follow-up with endocrinology. (6) Alcohol abuse: Code(s): F10.10 - Alcohol abuse, uncomplicated Plan: Encouraged alcohol cessation, patient declined help with alcohol cessation (7) Screening for breast cancer: Code(s): Z12.39 - Encounter for other screening for malignant neoplasm of breast Orders: Orders Influenza [id number] Immunization Today Z23 - Encounter for immunization MM tomosynthesis screening BI Today Z12.31 - Encounter for screening mammogram for malignant neoplasm of breast Medications: Refilled lisinopril 20 mg PO DAILY 90 tabs 2RF Quality Reporting (2019) Depression/Bipolar (159/160/161/177) PHQ-9: Total score: 0 Coding Level of Care Code Medicare Subsequent (G0439) Diagnoses Adult general medical exam Z00.00 Screening for diabetes mellitus Z13.1 Essential hypertension I10 Hypertension type: essential hypertension Age-related osteoporosis without current pathological fracture M81.0 Osteoporosis type: age-related Presence of current pathological fracture: without current pathological fracture Non-toxic multinodular goiter E04.2 Alcohol abuse F10.10 Screening for breast cancer Z12.39 CPT Codes Advance Care Planning - Advance Care Planning discussion: On file, no changes ([id number]) Advance Care Planning - Time spent: 1-15 minutes, on File ([id number]) Advance Care Planning Advance Care Planning discussion: On file, no changes Date of discussion: 08/02/23 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
== END 2023-08-02 14:25 | disposition home or self-care (01) ==
PROVIDERS: Visit Provider Nurse Practitioner Family
DX: Z00.00 Encounter for general adult medical examination without abnormal findings (principal); Z13.1 Encounter for screening for diabetes mellitus; I10 Essential (primary) hypertension; Z23 Encounter for immunization; M81.0 Age-related osteoporosis without current pathological fracture; E04.2 Nontoxic multinodular goiter; F10.10 Alcohol abuse, uncomplicated; Z12.39 Encounter for other screening for malignant neoplasm of breast
CPT/HCPCS: 1123F; 90471; 90686; G0439

== ENCOUNTER → 2023-08-05 08:30 | Outpatient (BNV) | payer MEDICARE, OTHER, SELFPAY | PROVIDERS: PCP Nurse Practitioner Family; Visit Provider Radiology Diagnostic Radiology | DX: Z12.31 Encounter for screening mammogram for malignant neoplasm of breast (principal) | CPT/HCPCS: 77063; 77067 ==

== ENCOUNTER 2023-08-05 08:31 | Outpatient (REF) | payer MEDICARE, OTHER, SELFPAY | END 2023-08-05 08:32 | disposition home or self-care (01) | LOC: HO.MAMMO 08:31 | PROVIDERS: PCP Nurse Practitioner Family; Visit Provider Nurse Practitioner Family | DX: Z12.31 Encounter for screening mammogram for malignant neoplasm of breast (principal) | CPT/HCPCS: 77063; 77067 ==

== ENCOUNTER 2023-11-30 21:40 | Inpatient (IN) | payer MEDICARE, SELFPAY ==
--- NOTE | ~2023-11-30 | FL_ITS ---
EXAMINATION: XR FLUOROSCOPY WITH IMAGES CLINICAL INFORMATION: ORIF right hip. COMPARISON: Right hip radiographs dated 11/30/2023. TECHNIQUE: Fluoroscopy Supervised By: Dr. Lauro Stern. Fluoroscopy Time: 0.4 minutes. Cumulative Dose: 8.46 mGy. DAP: 0.146 mGym2. Images: 4. FINDINGS: The submitted images show application of an intramedullary daniel, proximal compression screw and distal fixator screw to the proximal right femur. There is improved alignment of an intertrochanteric fracture of the proximal right femur. FL/FL guidance in OR IMPRESSION: Intraoperative fluoroscopic guidance is provided during ORIF of a proximal right femoral fracture. Please see the patient's Operative Report for full procedural details.
--- NOTE | ~2023-11-30 | XR_ITS ---
EXAMINATION: Chest, right knee, AP pelvis and right hip. CLINICAL INDICATIONS: Fall. Pain. COMPARISON: Nothing recent. TECHNIQUE: Chest one view. Right knee 4 views. AP pelvis and right hip 3 views. FINDINGS: CHEST: The lungs are well-expanded and clear of acute pneumonic process. The heart size and pulmonary vascularity is normal. No gross bony abnormality seen. RIGHT KNEE: There is a total right knee prosthesis with prosthetic components in satisfactory alignment. No visible acute fracture or bony abnormality seen. There is mild suprapatellar joint effusion. There is cerebral and calcified. AP PELVIS AND RIGHT HIP: There is a subtrochanteric right femoral fracture with medial angulation. There is no dislocation. The left hip joint space is reduced. No fracture or dislocation involving the left hip or the pelvic bones. Mild degenerative cyst disc changes and spondylosis L4-L5 disc level. SI joints are symmetrical and normal. XR/XR knee RT 2V IMPRESSION: Right subtrochanteric femoral fracture with medial angulation. Mild degenerative changes bilateral hip joints. No fractures involving rest of the pelvic Total knee prosthesis with no periprosthetic fracture seen. However there is mild suprapatellar joint effusion with anterior superior patellar spur. Unremarkable chest exam.
--- NOTE | ~2023-11-30 | XR_ITS ---
EXAMINATION: Chest, right knee, AP pelvis and right hip. CLINICAL INDICATIONS: Fall. Pain. COMPARISON: Nothing recent. TECHNIQUE: Chest one view. Right knee 4 views. AP pelvis and right hip 3 views. FINDINGS: CHEST: The lungs are well-expanded and clear of acute pneumonic process. The heart size and pulmonary vascularity is normal. No gross bony abnormality seen. RIGHT KNEE: There is a total right knee prosthesis with prosthetic components in satisfactory alignment. No visible acute fracture or bony abnormality seen. There is mild suprapatellar joint effusion. There is cerebral and calcified. AP PELVIS AND RIGHT HIP: There is a subtrochanteric right femoral fracture with medial angulation. There is no dislocation. The left hip joint space is reduced. No fracture or dislocation involving the left hip or the pelvic bones. Mild degenerative cyst disc changes and spondylosis L4-L5 disc level. SI joints are symmetrical and normal. XR/XR hip RT w PEL1V IMPRESSION: Right subtrochanteric femoral fracture with medial angulation. Mild degenerative changes bilateral hip joints. No fractures involving rest of the pelvic Total knee prosthesis with no periprosthetic fracture seen. However there is mild suprapatellar joint effusion with anterior superior patellar spur. Unremarkable chest exam.
--- NOTE | ~2023-11-30 | XR_ITS ---
EXAMINATION: Chest, right knee, AP pelvis and right hip. CLINICAL INDICATIONS: Fall. Pain. COMPARISON: Nothing recent. TECHNIQUE: Chest one view. Right knee 4 views. AP pelvis and right hip 3 views. FINDINGS: CHEST: The lungs are well-expanded and clear of acute pneumonic process. The heart size and pulmonary vascularity is normal. No gross bony abnormality seen. RIGHT KNEE: There is a total right knee prosthesis with prosthetic components in satisfactory alignment. No visible acute fracture or bony abnormality seen. There is mild suprapatellar joint effusion. There is cerebral and calcified. AP PELVIS AND RIGHT HIP: There is a subtrochanteric right femoral fracture with medial angulation. There is no dislocation. The left hip joint space is reduced. No fracture or dislocation involving the left hip or the pelvic bones. Mild degenerative cyst disc changes and spondylosis L4-L5 disc level. SI joints are symmetrical and normal. XR/XR chest 1V IMPRESSION: Right subtrochanteric femoral fracture with medial angulation. Mild degenerative changes bilateral hip joints. No fractures involving rest of the pelvic Total knee prosthesis with no periprosthetic fracture seen. However there is mild suprapatellar joint effusion with anterior superior patellar spur. Unremarkable chest exam.
[2023-11-30 21:54] VITALS: BP 120/72; PULSE 62; O2SAT 97; BMI 19.6
[2023-11-30 21:59] VITALS: BP 102/62; PULSE 60; RESP 18; TEMP 36.4; O2SAT 98
--- NOTE | 2023-11-30 22:51 | ED_ITS ---
HPI - Fall General Chief Complaint: Fall Stated Complaint: FALL R FEMUR PAIN Time Seen by Provider: 11/30/23 21:45 Source: patient and EMS Mode of arrival: EMS Limitations: physical limitation History of Present Illness HPI Narrative: 78-year-old female with a past medical history of hypertension presents emergency department, by EMS, after a mechanical fall. Patient reports that she lost her balance and fell onto her right side. She reports she has an abrasion to her right elbow and complains of pain in her right hip and femur. EMS reports the patient was able to sit in a chair and straightened both legs on their assessment, however; here in the emergency department patient right leg appears externally rotated. Patient reports increased pain in the right hip when standing. She denies any dizziness, lightheadedness, vision changes chest pain, palpitations, shortness of breath prior to falling. She denies any head strike, loss of consciousness, nausea, vomiting, or confusion after falling. Patient reports she has had several falls over the last couple of weeks. She denies any anticoagulation use, shortness of breath, chest pain, current headache, vision changes, abdominal pain, nausea, vomiting, and dizziness reports that patient is a daily drinker and that she drinks roughly 1 L of whiskey per week. He states that he believes she was drinking earlier today which may have caused her fall. He states that she typically I would say the bottle so he is unsure of how much she is actually drinking. She denies ever going through alcohol withdrawals and denies current nausea, confusion, or feeling tremulous Pertinent positives and negatives discussed in HPI MD complaint: fall Related Data Home Medications Medication Instructions Recorded Confirmed vitamins A,C,B-ngos-ctimdp 4,296 1 cap PO BID 11/05/21 08/02/23 mcg-226 mg-90 mg capsule (PreserVision AREDS) Previous Rx's Medication Instructions Recorded calcium carbonate 600 mg calcium 600 mg PO BID 90 days #180 tabs 03/16/21 (1,500 mg) tablet (Calcium) cholecalciferol (vitamin D3) 50 50 mcg PO DAILY 90 days #90 caps 03/16/21 mcg (2,000 unit) capsule epinephrine 0.3 mg/0.3 mL 0.3 mg (0.3 mL) IM Q4H PRN 09/06/22 injection, auto-injector (EpiPen anaphylaxis #2 ea 2-Reid) alendronate 70 mg tablet 70 mg PO QWEEK 90 days #13 tabs 04/04/23 lidocaine 4 % topical patch 1 patch topical DAILY PRN pain #30 06/17/23 (Aspercreme (lidocaine)) ea lisinopril 20 mg tablet 20 mg PO DAILY #90 tabs 08/02/23 Allergies Allergy/AdvReac Type Severity Reaction Status Date / Time horseradish [HORSERADISH] Allergy Severe Involuntary Verified 08/02/23 14:15 Spasms erythromycin base Allergy Intermediate Hives Verified 08/02/23 14:15 [ERYTHROMYCIN BASE] naproxen [From Aleve] Allergy Intermediate Hives Verified 08/02/23 14:15 beet [BEET] Allergy Unknown Unknown Verified 08/02/23 14:15 milk [MILK] Allergy Unknown Stomach Verified 08/02/23 14:15 pain, Vomits nut - unspecified [nut] Allergy Unknown Unknown Verified 08/02/23 14:15 raspberry Allergy Unknown Unknown Verified 08/02/23 14:15 sunflower seed Allergy Unknown Unknown Verified 08/02/23 14:15 aspirin [ASA] AdvReac Intermediate Nose Bleed Verified 08/02/23 14:15 TURNIP Allergy Unknown Unknown Uncoded 08/02/23 14:15 Review of Systems 2 Review of Systems: Yes all other systems are reviewed and are negative PMFSH Past Medical History Medical History Coronavirus infection Screening for diabetes mellitus MGUS (monoclonal gammopathy of unknown significance) Knee osteoarthritis Impaired glucose tolerance Hypertension History of fracture of femur Osteoporosis Non-toxic multinodular goiter Surgical History Status post fine needle aspiration History of colonoscopy History of cataract surgery History of open reduction and internal fixation (ORIF) procedure History of knee replacement procedure of right knee History of tonsillectomy History of total left knee replacement Hx of removal of cyst History of ankle surgery Hx of hysterectomy Family History Family History Father HTN (hypertension) Mother No problems noted. Social History Social History Housing: House Alcohol intake: current Alcohol intake frequency: a few times a week Patient Tobacco Use Status: Never used Tobacco e-Cigarette/Vaping Use: Never Used Second Hand Smoke Exposure: No Advance Directives: No Advance Directives Information Provided: No service: No Current occupational status: employed and retired Cognitive needs: No Hearing needs: No Vision needs: Yes Physical Exam 2 Vital Signs: Vital Signs: Last Vital Signs Temp 97.5 F 11/30/23 21:59 Pulse 60 11/30/23 21:59 Resp 18 11/30/23 21:59 BP 102/62 11/30/23 21:59 Pulse Ox 98 11/30/23 21:59 O2 Del Method Room Air 11/30/23 21:59 BMI result Body Mass Index 19.6 Nursing notes and vital signs reviewed. GENERAL APPEARANCE: A&0 x 4, generally well appearing, no acute distress HENMT: Normal to inspection, atraumatic, face symmetrical. Normal external ears, nose, and oropharynx clear. EYE: PERRLA, EOM intact, structures appear normal NECK: Supple without lymphadenopathy. No stiffness or restricted ROM. CHEST: Normal to inspection HEART: Normal rate and regular rhythm, normal S1/S2, no M/R/G LUNGS: LS CTA, moving air well. Able to speak in complete sentences. No crackles, wheezes, or rhonchi auscultated ABDOMEN: Soft, nontender, nondistended. Normal bowel sounds noted BACK: No CVAT, no obvious deformity EXTREMITIES: No cyanosis, clubbing, or edema. Normal capillary refill. Right leg externally rotated at rest NEUROLOGICAL: Alert and oriented, moving all 4 extremities with equal strength. CN not formally tested but appearing grossly intact. Observed to ambulate with normal gait. Cognition normal SKIN: Warm and dry without any lesions, rash, or visible sores PSYCH: Cooperative, normal affect, normal thought process Medical Decision Making Medical Decision Making MDM Narrative: Old records reviewed for previous imaging, lab studies, ECGs, and notes with additional HPI obtained from patient's as well as EMS. Patient was assessed the emergency department with no acute distress noted. Right leg externally rotated and hip xray completed showing a right hip fracture per my interpretation. Radiology report showing a right subtrochanteric femoral fracture with medial angulation. Patient and family updated with x-ray results. Admission was discussed for management of an acute hip fracture and patient and are in agreement with admission with no unanswered questions. Case discussed with hospitalist, Dr Devlin, as well as Brijesh from orthopedics. Dumont catheter and type and screen ordered in anticipation for management of hip fracture. A chest x-ray was completed which I independently as negative for acute findings. CIWA scale was ordered to assess for ETOH withdrawal. Differential Diagnosis Differential Diagnoses: The differential diagnosis associated with the presentation includes Not limited to ACS, PE, CVA, contusion, fracture, dislocation, alcohol intoxication Lab Data 11/30/23 23:58 11/30/23 23:58 Independent Interpretation I performed an independent interpretation of an: Plain X-Ray Independent Historian Clinical information obtained from an independent historian. History obtained from or confirmed by: Spouse and EMS External Record Review External record reviewed: Inpatient record Chronic Conditions Patient?s care impacted by: Hypertension Discharge Plan Discharge Clinical Impression: Fall, Closed hip fracture
--- NOTE | 2023-11-30 23:44 | P.HPHOSP_ITS ---
History of Present Illness Date of Service: 11/30/23 Chief Complaint: Fall This is a 78-year-old female with pertinent history of essential hypertension, alcohol use disorder who presents to the emergency department for evaluation after a fall. Patient states as she was getting into bed, she stepped onto something, slipped and fell on the right side. She did not lose consciousness prior to the fall. No jerking movement of extremities. No chest pain or palpitations prior to the fall. Reports increased pain on the right hip upon standing and difficulty moving right lower extremity due to pain. Patient states that she has been falling a lot over the last couple of weeks. She denies significant alcohol use or alcohol withdrawal but the states that she drinks about a L of whiskey per week. No fever, chills, chest discomfort, palpitations, shortness of breath, abdominal pain, changes in urinary or bowel habits. In the emergency department, imaging with right-sided subtrochanteric femoral fracture Review of Systems 2 Constitutional: Constitutional: Reports no additional constitutional complaints and Reports frequent falls Cardiovascular: Cardiovascular: Reports no additional cardiovascular complaints Respiratory: Respiratory: Reports no additional respiratory complaints Gastrointestinal: Gastrointestinal: Reports no additional gastrointestinal complaints Genitourinary: Genitourinary: Reports no additional female genitourinary complaints Neurologic: Reports frequent falls [facility] Medical History Coronavirus infection Screening for diabetes mellitus MGUS (monoclonal gammopathy of unknown significance) Knee osteoarthritis Impaired glucose tolerance Hypertension History of fracture of femur Osteoporosis Non-toxic multinodular goiter Family History Father HTN (hypertension) Mother No problems noted. Surgical History Status post fine needle aspiration History of colonoscopy History of cataract surgery History of open reduction and internal fixation (ORIF) procedure History of knee replacement procedure of right knee History of tonsillectomy History of total left knee replacement Hx of removal of cyst History of ankle surgery Hx of hysterectomy Social History Housing: House Alcohol intake: current Alcohol intake frequency: a few times a week Patient Tobacco Use Status: Never used Tobacco e-Cigarette/Vaping Use: Never Used Second Hand Smoke Exposure: No Advance Directives: No Advance Directives Information Provided: No Nutrition Risks: No Nutritional Risk service: No Current occupational status: employed and retired Cognitive needs: No Hearing needs: No Vision needs: Yes Meds Allergies Allergy/AdvReac Type Severity Reaction Status Date / Time horseradish [HORSERADISH] Allergy Severe Involuntary Verified 08/02/23 14:15 Spasms erythromycin base Allergy Intermediate Hives Verified 08/02/23 14:15 [ERYTHROMYCIN BASE] naproxen [From Aleve] Allergy Intermediate Hives Verified 08/02/23 14:15 beet [BEET] Allergy Unknown Unknown Verified 08/02/23 14:15 milk [MILK] Allergy Unknown Stomach Verified 08/02/23 14:15 pain, Vomits nut - unspecified [nut] Allergy Unknown Unknown Verified 08/02/23 14:15 raspberry Allergy Unknown Unknown Verified 08/02/23 14:15 sunflower seed Allergy Unknown Unknown Verified 08/02/23 14:15 aspirin [ASA] AdvReac Intermediate Nose Bleed Verified 08/02/23 14:15 TURNIP Allergy Unknown Unknown Uncoded 08/02/23 14:15 Home Medications Medication Instructions Recorded Confirmed Last Taken Type vitamins A,C,C-jvil-sbmyan 4,296 1 cap PO BID 11/05/21 08/02/23 Unknown History [id number] mg-90 mg capsule (PreserVision AREDS) Physical Exam 2 Vital Signs and Narrative: Vital Signs: Last Vital Signs Temp 97.5 F 11/30/23 21:59 Pulse 60 11/30/23 21:59 Resp 18 11/30/23 21:59 BP 102/62 11/30/23 21:59 Pulse Ox 98 11/30/23 21:59 O2 Del Method Room Air 11/30/23 21:59 BMI result Body Mass Index 19.6 Elderly female lying in bed in no distress Neck supple, no JVD Regular rate and rhythm, S1-S2 heard Regular breath sounds bilaterally, no wheezing or crackles appreciated Abdomen soft nontender, no guarding, no rigidity Patient is awake, alert and oriented to self, place, time and person ; no focal motor deficit Extremity: Limited right lower extremity movement due to pain Psych: Normal mood No pedal edema Results Labs 11/30/23 23:58 11/30/23 23:58 Assessment and Plan (1) Closed hip fracture: Status: Acute Plan This is a 78-year-old female with pertinent history of essential hypertension, alcohol use disorder who presents to the emergency department for evaluation after a fall. #. Right subtrochanteric femoral fracture: Due to mechanical fall. Initiating IV opioids p.r.n. for analgesia. Consulted Orthopedic surgery, appreciate assistance #. Preoperative risk: RCRI score 0 #. Alcohol use disorder: Initiating thiamine. Monitor CIWA #. Essential hypertension: Hold lisinopril to prevent postoperative hypotension #. Elevated transaminases: Likely in the setting of alcohol use, outpatient follow-up #. Normocytic anemia: Hemoglobin above transfusion threshold Med rec pending DVT prophylaxis: Hold anticoagulation until evaluated by Orthopedic surgery Full code Admit as inpatient and will require two night minimum hospital stay for evaluation and treatment of right femoral fracture (as above), which is not possible in a lesser acute setting. Specialist consult pending Quality Stroke Does the patient have a stroke diagnosis?: No VTE Prior VTE?: No VTE Risk Level:: Medical - moderate - high VTE Device Contraindication: Treatment Not Indicated VTE Drug Contraindication: Treatment Not Indicated
[2023-12-01] VITALS (12 sets, daily range): BP systolic 92–118; BP diastolic 51–69; PULSE 56–100; RESP 16–18; TEMP 36.2–37.1; O2SAT 95–99
[2023-12-01 00:03] LABS: MANUAL DIFF FLAG NO
[2023-12-01 00:05] LABS: Basophils Percent Auto 0.4 % (0-2); Hematocrit 28.7 % (37.0-47.0); Hemoglobin 10.3 g/dl (12.0-16.0); Imm Gran Abs Auto 0.01 X10*3/uL (0.00-0.03); Imm Gran Pct Auto 0.4 % (0.0-0.4); Lymphocytes Absolute Auto 0.7 X10*3/uL (1.2-4.9); Lymphocytes Percent Auto 25.2 % (20-40); Mean Corpuscular HGB Conc 35.9 g/dl (31.0-35.0); Mean Corpuscular Volume 94.7 fL (80.0-98.0); Mean Platelet Volume 9.7 fL (9.4-12.3); Monocytes Absolute Auto 0.1 X10*3/uL (0.1-1.2); Monocytes Percent Auto 5.1 % (2-11); Neutrophils Absolute Auto 1.9 x10*3/uL (2.0-8.3); Neutrophils Percent Auto 68.9 % (45-73); Platelet Count 132 X10*3/uL (160-400); Red Blood Count 3.03 X10*6/uL (4.20-5.50); Red Cell Distribution Width 12.2 % (11.0-16.0); White Blood Count 2.7 X10*3/uL (4.8-10.8)
[2023-12-01] MEDS: 0.9 % Sodium Chloride Flush 3 ML SYRINGE IVFLUSH ×3 (00:17→21:38)
[2023-12-01] MEDS: Thiamine HCL 100 MG in 0.9 % Sodium Chloride 100 ML 202 MG IV (00:18)
[2023-12-01 00:22] LABS: Alanine Aminotransferase 57 U/L (0-31); Albumin Level 3.4 g/dL (3.5-5.0); Alkaline Phosphatase 110 U/L (39-117); Anion Gap 24 (12-20); Aspartate Amino Transferase 122 U/L (5-31); Bilirubin Total 0.6 mg/dL (0.0-1.0); Blood Urea Nitrogen 12 mg/dL (9-16); Calcium 8.3 mg/dL (8.4-10.2); Carbon Dioxide 19 mmol/L (22-29); Chloride 99 mmol/L (96-108); Creatinine Clr Calc Pharmacy 64.2; Estimated Glomerular Filt Rate > 60; Ethanol 243 mg/dL; Glucose Random 80 mg/dL (60-115); Potassium 3.6 mmol/L (3.3-5.1); Sodium 138 mmol/L (135-145); Total Protein 5.7 g/dL (6.5-8.0)
[2023-12-01 02:22] LABS: Folate 6.5 ng/mL (> or = 4.0); Vitamin B12 655 pg/mL (200-900)
[2023-12-01 05:26] LABS: MANUAL DIFF FLAG NO
[2023-12-01 05:31] LABS: Basophils Percent Auto 0.2 % (0-2); Eosinophils Percent Auto 0.2 % (0-4); Hematocrit 29.5 % (37.0-47.0); Hemoglobin 10.3 g/dl (12.0-16.0); Imm Gran Abs Auto 0.02 X10*3/uL (0.00-0.03); Imm Gran Pct Auto 0.4 % (0.0-0.4); Lymphocytes Absolute Auto 0.9 X10*3/uL (1.2-4.9); Lymphocytes Percent Auto 17.5 % (20-40); Mean Corpuscular HGB Conc 34.9 g/dl (31.0-35.0); Mean Corpuscular Hemoglobin 33.3 pg (27.0-33.0); Mean Corpuscular Volume 95.5 fL (80.0-98.0); Mean Platelet Volume 9.9 fL (9.4-12.3); Monocytes Absolute Auto 0.4 X10*3/uL (0.1-1.2); Monocytes Percent Auto 8.6 % (2-11); Neutrophils Absolute Auto 3.8 x10*3/uL (2.0-8.3); Neutrophils Percent Auto 73.1 % (45-73); Platelet Count 126 X10*3/uL (160-400); Red Blood Count 3.09 X10*6/uL (4.20-5.50); Red Cell Distribution Width 12.2 % (11.0-16.0); White Blood Count 5.1 X10*3/uL (4.8-10.8)
[2023-12-01 05:44] LABS: Anion Gap 25 (12-20); Blood Urea Nitrogen 14 mg/dL (9-16); Carbon Dioxide 16 mmol/L (22-29); Chloride 100 mmol/L (96-108); Creatinine Clr Calc Pharmacy 60.1; Estimated Glomerular Filt Rate > 60; Glucose Random 72 mg/dL (60-115); Potassium 3.8 mmol/L (3.3-5.1); Sodium 137 mmol/L (135-145)
[2023-12-01] MEDS: Morphine Sulfate 2 MG/ML CARTRIDGE IVPUSH ×2 (05:47→10:07)
[2023-12-01] MEDS: ondansetron HCL 4 MG/2 ML VIAL IVPUSH (05:47)
--- NOTE | 2023-12-01 06:00 | P.CONOP_ITS ---
History of Present Illness HPI Consult date: 12/01/23 <Caren Hurtado PA-C Last Filed: 12/01/23 08:47> Chief complaint: Fall <Caren Hurtado PA-C Filed: 12/01/23 08:47> Narrative: 78-year-old female with pertinent history of essential hypertension, alcohol use disorder who presents to the emergency department for evaluation after a fall. She states she was getting ready for bed when she lost her balance and fell onto the right side. She was unable to get up and ambulate, EMS was called and she was transported to the ED for evaluation. Xray findings in the ED showed right intertrochanteric fx of the femur. She was admitted to the medical service and orthopedics was consulted for surgical planning. <Caren Hurtado PA-C Last Filed: 12/01/23 08:47> Review of Systems 2 Review of Systems: per hpi <Caren Hurtado PA-C Last Filed: 12/01/23 08:47> [facility] Past Medical History Medical History: Medical History Coronavirus infection Screening for diabetes mellitus MGUS (monoclonal gammopathy of unknown significance) Knee osteoarthritis Impaired glucose tolerance Hypertension History of fracture of femur Osteoporosis Non-toxic multinodular goiter <Caren Hurtado PA-C Last Filed: 12/01/23 08:47> Family History Family History: Family History Father HTN (hypertension) Mother No problems noted. <Caren Hurtado PA-C Last Filed: 12/01/23 08:47> Surgical History Surgical History: Surgical History Status post fine needle aspiration History of colonoscopy History of cataract surgery History of open reduction and internal fixation (ORIF) procedure History of knee replacement procedure of right knee History of tonsillectomy History of total left knee replacement Hx of removal of cyst History of ankle surgery Hx of hysterectomy <Caren Hurtado PA-C Last Filed: 12/01/23 08:47> Social History Social History: Social History Housing: House Alcohol intake: current Alcohol intake frequency: a few times a week Patient Tobacco Use Status: Never used Tobacco e-Cigarette/Vaping Use: Never Used Second Hand Smoke Exposure: No Advance Directives: No Advance Directives Information Provided: No Nutrition Risks: No Nutritional Risk service: No Current occupational status: employed and retired Cognitive needs: No Hearing needs: No Vision needs: Yes <Caren Hurtado PA-C - Last Filed: 12/01/23 08:47> Meds Allergies/Adverse reactions: Allergies Allergy/AdvReac Type Severity Reaction Status Date / Time horseradish [HORSERADISH] Allergy Severe Involuntary Verified 08/02/23 14:15 Spasms erythromycin base Allergy Intermediate Hives Verified 08/02/23 14:15 [ERYTHROMYCIN BASE] naproxen [From Aleve] Allergy Intermediate Hives Verified 08/02/23 14:15 beet [BEET] Allergy Unknown Unknown Verified 08/02/23 14:15 milk [MILK] Allergy Unknown Stomach Verified 08/02/23 14:15 pain, Vomits nut - unspecified [nut] Allergy Unknown Unknown Verified 08/02/23 14:15 raspberry Allergy Unknown Unknown Verified 08/02/23 14:15 sunflower seed Allergy Unknown Unknown Verified 08/02/23 14:15 aspirin [ASA] AdvReac Intermediate Nose Bleed Verified 08/02/23 14:15 TURNIP Allergy Unknown Unknown Uncoded 08/02/23 14:15 <Caren Hurtado PA-C - Last Filed: 12/01/23 08:47> Active Medications: Current Medications Acetaminophen (Acetaminophen 325 Mg Tablet) 650 mg PO Q6H PRN PRN Reason: Pain, Mild (Pain Scale 1-3) Melatonin (Melatonin 3 Mg Tablet) 6 mg PO BEDTIME PRN PRN Reason: Insomnia Morphine Sulfate (Morphine Sulfate 2 Mg/Ml Cartridge) 2 mg IVPUSH Q4H PRN; Protocol PRN Reason: Pain, Severe (Pain Scale 7-10) Last Admin: 12/01/23 05:47 Dose: 2 mg Ondansetron HCl (Ondansetron Hcl 4 Mg/2 Ml Vial) 4 mg IVPUSH Q8H PRN PRN Reason: Nausea and Vomiting Last Admin: 12/01/23 05:47 Dose: 4 mg Sodium Chloride (0.9 % Sodium Chloride Flush 3 Ml Syringe) 3 ml IVFLUSH QSHIFT [facility] Last Admin: 12/01/23 00:17 Dose: 3 ml Thiamine HCl (Thiamine Hcl 100 Mg Tablet) 100 mg PO DAILY [facility] <Caren Hurtado PA-C Last Filed: 12/01/23 08:47> Physical Exam 2 Vital Signs: Vital Signs: Last Vital Signs Temp 97.9 F 12/01/23 00:31 Pulse 84 12/01/23 05:43 Resp 16 12/01/23 05:43 BP 110/67 12/01/23 05:43 Pulse Ox 98 12/01/23 05:43 O2 Del Method Room Air 12/01/23 05:43 BMI result Body Mass Index 19.6 <Caren Hurtado PA-C Last Filed: 12/01/23 08:47> Const: General: cooperative, healthy appearing, comfortable, no acute distress, well developed and alert <Caren Hurtado PA-C Last Filed: 12/01/23 08:47> Orientation/consciousness: patient oriented x3 <Caren Hurtado PA-C Last Filed: 12/01/23 08:47> HEENT: Head: Yes normal to inspection, Yes normocephalic and Yes atraumatic <Caren Hurtado PA-C Last Filed: 12/01/23 08:47> Eyes: General: appearance normal, both eyes and all related structures < Caren Hurtado PA-C Last Filed: 12/01/23 08:47> Neck: Neck: Yes normal visual inspection and Yes no lymphadenopathy <Kiel Hurtado PA-C Last Filed: 12/01/23 08:47> Resp: Effort & Inspection: normal respiratory effort and able to speak in complete sentences <Caren Hurtado PA-C Last Filed: 12/01/23 08:47> Cardio: Rate: regular rate <Caren Hurtado PA-C Last Filed: 12/01/23 08:47> Peripheral pulses: Peripheral pulses 2+ throughout <Caren Hurtado PA-C Last Filed: 12/01/23 08:47> GI: Inspection: Yes normal to inspection <Caren Hurtado PA-C - Last Filed: 12/01/23 08:47> Palpation (GI): Soft to palpation <Caren Hurtado PA-C - Last Filed: 12/01/23 08:47> Skin: General skin exam: no rashes or lesions noted <Caren Hurtado PA-C - Last Filed: 12/01/23 08:47> Neuro: General: patient oriented x3 <Caren Hurtado PA-C - Last Filed: 12/01/23 08:47> Extrem: Other: Right hip tenderness to palpation and pain with log roll. Unable to SLR and she is able to dorsi and plantar flex. NVI. <JONAS Perez Last Filed: 12/01/23 08:47> Psych: Appearance: grossly normal <JONAS Perez Last Filed: 12/01/23 08:47> Mental Status: mental status grossly normal <Caren Hurtado PA-C Last Filed: 12/01/23 08:47> Results Labs Result Diagrams: 12/01/23 04:55 12/01/23 04:55 <Caren Hurtado PA-C - Last Filed: 12/01/23 08:47> Labs: Abnormal lab results 11/30/23 12/01/23 Range/Units 23:58 04:55 WBC 2.7 L (4.8-10.8) X10*3/uL RBC 3.03 L 3.09 L (4.20-5.50) X10*6/uL Hgb 10.3 L 10.3 L (12.0-16.0) g/dl Hct 28.7 L 29.5 L (37.0-47.0) % MCH 34.0 H 33.3 H (27.0-33.0) pg MCHC 35.9 H (31.0-35.0) g/dl Plt Count 132 L 126 L (160-400) X10*3/uL Neut % (Auto) 73.1 H (45-73) % Lymph % (Auto) 17.5 L (20-40) % Lymph # (Auto) 0.7 L 0.9 L (1.2-4.9) X10*3/uL Absolute Neuts (auto) 1.9 L (2.0-8.3) x10*3/uL Carbon Dioxide 19 L 16 L (22-29) mmol/L Anion Gap 24 H 25 H (12-20) Calcium 8.3 L D 8.0 L (8.4-10.2) mg/dL AST 122 H (5-31) U/L ALT 57 H (0-31) U/L Total Protein 5.7 L (6.5-8.0) g/dL Albumin 3.4 L (3.5-5.0) g/dL H & H 11/30/23 12/01/23 Range/Units 23:58 04:55 Hgb 10.3 L 10.3 L (12.0-16.0) g/dl Hct 28.7 L 29.5 L (37.0-47.0) % All other labs normal. <Caren Hurtado PA-C Last Filed: 12/01/23 08:47> Assessment and Plan (1) Intertrochanteric fracture of left hip: Qualifiers: Encounter type: initial encounter Fracture alignment: d isplaced Fracture type: closed Qualified Code(s): S72.142A - Displaced intertrochanteric fracture of left femur, initial encounter for closed fracture <Caren Hurtado PA-C Filed: 12/01/23 08:47> Status: Acute <JONAS Perez Last Filed: 12/01/23 08:47> I discussed the case with Dr Stern and explained the extent of the injury to the patient and options available which include surgical intervention. I explained the procedure in detail along with the length of recovery and rehab course. I explained the risk, benefits and alternatives. Risk including, but not limited to infection, blood clots, bleeding, non union or malunion and nerve/tissue damage to surrounding areas. I answered all their questions and with their understanding they have consented to move forward with Operative Fixation of the left femur . The patient will be T&S, med clearance obtained and remain NPO. <JONAS Perez Last Filed: 12/01/23 08:47> Procedures Date of Service Date of Service: 12/01/23 <Caren Hurtado PA-C - Last Filed: 12/01/23 08:47> 12/01/23 <Lauro Stern MD - Last Filed: 12/01/23 14:11>
--- NOTE | 2023-12-01 08:14 | PHA.MEDREC ---
Pharmacy Consult ? Medication Reconciliation Pharmacy has completed the medication reconciliation. SPOKE TO PATIENT, SHE SAID SHE ONLY TAKES 2 MEDICATIONS (ALENDRONATE AND LISINOPRIL).
--- NOTE | 2023-12-01 09:56 | P.PNIM_ITS ---
Subjective Subjective Date of Service: 12/01/23 <Sandra Carroll Annabel - Last Filed: 12/01/23 10:55> 12/01/23 <Steven Desai MD - Last Filed: 12/01/23 11:06> Interval History: F/U on Intertrochanteric fracture of right hip Says she is feeling better after pain management. Denies headache, nausea, tremors, anxiety, hallucinations, seizure-symptoms. <Sandra Cookt Reubenjuarez - Last Filed: 12/01/23 10:55> Review of Systems Review of Systems: Yes all other systems are reviewed and are negative <Sandra Alexisjuarez - Last Filed: 12/01/23 10:55> Physical Exam 2 Vital Signs: Vital Signs: Last Vital Signs Temp 97.9 F 12/01/23 00:31 Pulse 84 12/01/23 05:43 Resp 16 12/01/23 05:43 BP 110/67 12/01/23 05:43 Pulse Ox 98 12/01/23 05:43 O2 Del Method Room Air 12/01/23 05:43 BMI result Body Mass Index 19.6 <Sandra Alexisjuarez - Last Filed: 12/01/23 10:55> General: A&0 x 3, no acute distress CVS: Normal rate and regular rhythm, normal S1/S2 Pulm: Clear to auscultation bilaterally, no increased respiratory effort Extremities: Normal capillary refill, pulses 2+ throughout Neuro: No gross abnormality Psych: Cooperative, normal affect, normal thought process <Sandra Cookblue Jin - Last Filed: 12/01/23 10:55> Objective Data Active Medications Acetaminophen (Acetaminophen 325 Mg Tablet) 650 mg PO Q6H PRN PRN Reason: Pain, Mild (Pain Scale 1-3) Melatonin (Melatonin 3 Mg Tablet) 6 mg PO BEDTIME PRN PRN Reason: Insomnia Morphine Sulfate (Morphine Sulfate 2 Mg/Ml Cartridge) 2 mg IVPUSH Q4H PRN; Protocol PRN Reason: Pain, Severe (Pain Scale 7-10) Last Admin: 12/01/23 05:47 Dose: 2 mg Documented By: BENITO Ondansetron HCl (Ondansetron Hcl 4 Mg/2 Ml Vial) 4 mg IVPUSH Q8H PRN PRN Reason: Nausea and Vomiting Last Admin: 12/01/23 05:47 Dose: 4 mg Documented By: BENITO Sodium Chloride (0.9 % Sodium Chloride Flush 3 Ml Syringe) 3 ml IVFLUSH QSHIFT [facility] Last Admin: 12/01/23 00:17 Dose: 3 ml Documented By: BENITO Thiamine HCl (Thiamine Hcl 100 Mg Tablet) 100 mg PO DAILY [facility] Last Admin: 12/01/23 09:06 Dose: Not Given Documented By: JARETT Non-Admin Reason: NPO <Sandra Jin - Last Filed: 12/01/23 10:55> Labs CBC & Chem 7: 12/01/23 04:55 12/01/23 04:55 <Sandra Jin - Last Filed: 12/01/23 10:55> Labs: Laboratory Results - last 24 hr 11/30/23 12/01/23 12/01/23 23:58 00:43 04:55 MCV 94.7 95.5 MCH 34.0 H 33.3 H MCHC 35.9 H 34.9 RDW 12.2 12.2 Plt Count 132 L 126 L MPV 9.7 9.9 Immature Gran % (Auto) 0.4 0.4 Neut % (Auto) 68.9 73.1 H Lymph % (Auto) 25.2 17.5 L [place] % (Auto) 5.1 8.6 Eos % (Auto) 0.0 0.2 Baso % (Auto) 0.4 0.2 Lymph # (Auto) 0.7 L 0.9 L [place] # (Auto) 0.1 0.4 Eos # (Auto) 0.0 0.0 Baso # (Auto) 0.0 0.0 Abs Immat Gran (auto) 0.01 0.02 Absolute Neuts (auto) 1.9 L 3.8 Absolute Nucleated RBC 0.000 0.000 Nucleated RBC % (auto) 0.0 0.0 Anion Gap 24 H 25 H Estim Creat Clear Calc 64.2 60.1 Estimated GFR > 60 > 60 Random Glucose 80 72 Calcium 8.3 L D 8.0 L Total Bilirubin 0.6 AST 122 H ALT 57 H Alkaline Phosphatase 110 Total Protein 5.7 L Albumin 3.4 L Vitamin B12 655 Folate 6.5 Ethyl Alcohol 243 Blood Type O Positive Antibody Screen NEGATIVE <Sandra Jin - Last Filed: 12/01/23 10:55> Assessment and Plan (1) Alcohol abuse: Status: Acute <Sandra Jin - Last Filed: 12/01/23 10:55> (2) Hip fracture: Status: Acute <Sandra Jin - Last Filed: 12/01/23 10:55> Assessment and Plan: This is a 78-year-old female with pertinent history of essential hypertension, alcohol use disorder who admitted for management of a right subtrochanteric femoral fracture due to mechanical fall. Right subtrochanteric femoral fracture due to mechanical fall: - Ortho recommends femoral intramedullary nailing - scheduled for 1500 12/01/2023 - Continue morphine for pain management Alcohol use disorder: - Begin phenobarbital protocol to shauna withdrawal - Continue to monitor CIWA and continue thiamine Essential hypertension: Hold lisinopril to prevent postoperative hypotension Osteoporosis: Hold alendronate for surgery Elevated transaminases: Likely in the setting of alcohol use, outpatient follow- up Normocytic anemia: - Hemoglobin above transfusion threshold - Repeat CBC in AM DVT prophylaxis: Hold anticoagulation until evaluated by Orthopedic surgery Full code Need for inpatient due to femoral fracture requiring surgical intervention and monitoring for alcohol withdrawal. <Sandra Jin - Last Filed: 12/01/23 10:55> This is a 78-year-old female with pertinent history of essential hypertension, alcohol use disorder who admitted for management of a right subtrochanteric femoral fracture due to mechanical fall. Right subtrochanteric femoral fracture due to mechanical fall: - Ortho recommends femoral intramedullary nailing - scheduled for 1500 12/01/2023 - Continue morphine for pain management Alcohol use disorder: - Begin phenobarbital protocol to shauna withdrawal - Continue to monitor CIWA and continue thiamine and folate Essential hypertension: Hold lisinopril to prevent postoperative hypotension Osteoporosis: Hold alendronate for surgery Elevated transaminases: Likely in the setting of alcohol use, outpatient follow- up Normocytic anemia: - Hemoglobin above transfusion threshold - Repeat CBC in AM DVT prophylaxis: Hold anticoagulation until after surgery Full code Need for inpatient due to femoral fracture requiring surgical intervention and monitoring for alcohol withdrawal. <Steven Desai MD - Last Filed: 12/01/23 11:06> Quality Stroke Does the patient have a stroke diagnosis?: No <Sandra Jin - Last Filed: 12/01/23 10:55> VTE Prior VTE?: No <Sandra Jin - Last Filed: 12/01/23 10:55> VTE Risk Level:: Medical - moderate - high <Sandra Jin - Last Filed: 12/01/23 10:55> VTE Device Contraindication: Treatment Not Indicated <Sandra Jin - Last Filed: 12/01/23 10:55> VTE Drug Contraindication: Treatment Not Indicated <Sandra Jin - Last Filed: 12/01/23 10:55>
--- NOTE | 2023-12-01 10:20 | PC.NURSE ---
pt a +o x3, vss. pt reports 10/10 r hip pain, prn morphine given as documented, will reassess. pt scheduled for surgery, no specific time at this time. pt's is at her bedside, both aware of plan.
[2023-12-01] MEDS: PHENobarbitaL sodium 130 MG/ML IM ONCE 160 MG IM (11:35)
[2023-12-01] MEDS: Folic Acid 1 MG TABLET PO (11:36)
--- NOTE | 2023-12-01 14:28 | HO.ANESPROP2 ---
HPI - Anesthesia Eval Consult details Narrative: for IM nailing femur pt ate eggs and orange juice at 8 AM today, to be done at 4 pm . PMFSH Active Problems Active Problems: All Active Problems (Updated 12/01/23 @ 11:04 by Steven Desai MD) Hip fracture (Acute) Intertrochanteric fracture of left hip (Acute) Closed hip fracture (Acute) Fall (Acute) COVID-19 virus infection (Acute) Screening for breast cancer (Acute) Alcohol abuse (Acute) Low back pain (Acute) Screening for diabetes mellitus (Acute) Adult general medical exam (Acute) MGUS (monoclonal gammopathy of unknown significance) (Acute) Hypertension (Acute) Osteoporosis (Acute) Non-toxic multinodular goiter (Acute) Past Medical History Medical History Coronavirus infection Screening for diabetes mellitus MGUS (monoclonal gammopathy of unknown significance) Knee osteoarthritis Impaired glucose tolerance Hypertension History of fracture of femur Osteoporosis Non-toxic multinodular goiter Family History Family History Father HTN (hypertension) Mother No problems noted. Family history of problems with anesthesia: No Surgical History Surgical History Status post fine needle aspiration History of colonoscopy History of cataract surgery History of open reduction and internal fixation (ORIF) procedure History of knee replacement procedure of right knee History of tonsillectomy History of total left knee replacement Hx of removal of cyst History of ankle surgery Hx of hysterectomy History of Problems with Anesthesia: No Social History Social History Housing: House Alcohol intake: current Alcohol intake frequency: a few times a week Patient Tobacco Use Status: Never used Tobacco e-Cigarette/Vaping Use: Never Used Second Hand Smoke Exposure: No Advance Directives: No Advance Directives Information Provided: No Nutrition Risks: No Nutritional Risk service: No Current occupational status: employed and retired Cognitive needs: No Hearing needs: No Vision needs: Yes Meds Allergies Allergy/AdvReac Type Severity Reaction Status Date / Time horseradish [HORSERADISH] Allergy Severe Involuntary Verified 12/01/23 14:28 Spasms erythromycin base Allergy Intermediate Hives Verified 12/01/23 14:28 [ERYTHROMYCIN BASE] naproxen [From Aleve] Allergy Intermediate Hives Verified 12/01/23 14:28 beet [BEET] Allergy Unknown Unknown Verified 12/01/23 14:28 milk [MILK] Allergy Unknown Stomach Verified 12/01/23 14:28 pain, Vomits nut - unspecified [nut] Allergy Unknown Unknown Verified 12/01/23 14:28 raspberry Allergy Unknown Unknown Verified 12/01/23 14:28 sunflower seed Allergy Unknown Unknown Verified 12/01/23 14:28 aspirin [ASA] AdvReac Intermediate Nose Bleed Verified 12/01/23 14:28 TURNIP Allergy Unknown Unknown Uncoded 12/01/23 14:28 Active Medications: Current Medications Acetaminophen (Acetaminophen 325 Mg Tablet) 650 mg PO Q6H PRN PRN Reason: Pain, Mild (Pain Scale 1-3) Folic Acid (Folic Acid 1 Mg Tablet) 1 mg PO DAILY [facility] Stop: 12/03/23 09:01 Last Admin: 12/01/23 11:36 Dose: 1 mg Melatonin (Melatonin 3 Mg Tablet) 6 mg PO BEDTIME PRN PRN Reason: Insomnia Morphine Sulfate (Morphine Sulfate 2 Mg/Ml Cartridge) 2 mg IVPUSH Q4H PRN; Protocol PRN Reason: Pain, Severe (Pain Scale 7-10) Last Admin: 12/01/23 10:07 Dose: 2 mg Ondansetron HCl (Ondansetron Hcl 4 Mg/2 Ml Vial) 4 mg IVPUSH Q8H PRN PRN Reason: Nausea and Vomiting Last Admin: 12/01/23 05:47 Dose: 4 mg Pharmacy Consult (Consult Rx Etoh Phenob Im/Po) 1 each MISCELLANE ONCE PRN; Protocol PRN Reason: Consult order Phenobarbital (Phenobarbital 15 Mg Tablet) 45 mg PO BID [facility] Stop: 12/03/23 21:01 Phenobarbital (Phenobarbital 15 Mg Tablet) 15 mg PO BID [facility] Stop: 12/05/23 21:01 Phenobarbital (Phenobarbital 15 Mg Tablet) 15 mg PO DAILY [facility] Stop: 12/07/23 09:01 Phenobarbital Sodium (Phenobarbital Sodium 130 Mg/Ml Vial Im Q3hx2) 120 mg IM Q3H [facility] Stop: 12/01/23 17:01 Sodium Chloride (0.9 % Sodium Chloride Flush 3 Ml Syringe) 3 ml IVFLUSH QSHIFT [facility] Last Admin: 12/01/23 10:08 Dose: 3 ml Thiamine HCl (Thiamine Hcl 100 Mg Tablet) 100 mg PO DAILY [facility] Last Admin: 12/01/23 09:06 Dose: Not Given Exam Height,Weight and Vital Signs: Height 5 ft 3 in Weight 50.126 kg Last Vital Signs Temp 98.7 F 12/01/23 10:12 Pulse 84 12/01/23 10:12 Resp 18 12/01/23 10:12 BP 111/60 12/01/23 10:12 Pulse Ox 97 12/01/23 10:12 O2 Del Method Room Air 12/01/23 10:12 Pertinent Lab Results Pertinent Lab Results: Laboratory Tests 11/30/23 12/01/23 12/01/23 23:58 00:43 04:55 WBC 2.7 L 5.1 RBC 3.03 L 3.09 L Hgb 10.3 L 10.3 L Hct 28.7 L 29.5 L MCV 94.7 95.5 MCH 34.0 H 33.3 H MCHC 35.9 H 34.9 RDW 12.2 12.2 Plt Count 132 L 126 L MPV 9.7 9.9 Immature Gran % (Auto) 0.4 0.4 Neut % (Auto) 68.9 73.1 H Lymph % (Auto) 25.2 17.5 L [place] % (Auto) 5.1 8.6 Eos % (Auto) 0.0 0.2 Baso % (Auto) 0.4 0.2 Lymph # (Auto) 0.7 L 0.9 L [place] # (Auto) 0.1 0.4 Eos # (Auto) 0.0 0.0 Baso # (Auto) 0.0 0.0 Abs Immat Gran (auto) 0.01 0.02 Absolute Neuts (auto) 1.9 L 3.8 Absolute Nucleated RBC 0.000 0.000 Nucleated RBC % (auto) 0.0 0.0 Sodium 138 137 Potassium 3.6 3.8 Chloride 99 100 Carbon Dioxide 19 L 16 L Anion Gap 24 H 25 H BUN 12 14 Creatinine 0.59 0.63 Estim Creat Clear Calc 64.2 60.1 Estimated GFR > 60 > 60 Random Glucose 80 72 Calcium 8.3 L D 8.0 L Total Bilirubin 0.6 AST 122 H ALT 57 H Alkaline Phosphatase 110 Total Protein 5.7 L Albumin 3.4 L Vitamin B12 655 Folate 6.5 Ethyl Alcohol 243 Blood Type O Positive Antibody Screen NEGATIVE Airway Mallampati Class: I TM Dist: <=3cm Neck ROM: Limited Heart: rrr Lungs: cta Assessment and Plan Assessment Anesthesia Assessment: Anesthesia Plan Discussed and Chart Reviewed Final Anesthetic Review Family History of Problems with Anesthesia: No History of Problems with Anesthesia: No NPO: Yes ASA Class: III Final Preanesthetic Review: No Changes in Pt Med Stat, Meds/Allgs Chart Reviewed, Consent Obtained/Reviewed and Anes Risks/Benef Reviewed Patient Risk: High Procedure Risk: Intermediate Anesthetic Plan Anesthetic Plan: GA Disposition: Standard PACU
--- NOTE | 2023-12-01 15:03 | PC.NURSE ---
Addendum entered by Antonia Lozoya 12/01/23 15:04: Patient resting quietly with eyes closed, no agitation noted, VS WNL. Original Note: Patient in preop. Scheduled dose of IM phenobarbital held per anesthesia MD Dr. Montaño. Pharmacy called and Maren made aware.
[2023-12-01] MEDS: Lactated Ringers 1,000 ML 80 ML IVCONT (15:06)
--- NOTE | 2023-12-01 16:00 | MHC.SHP ---
Pre-Procedural Eval Section A - 24 Hr Update-Section A only Date of Service: 12/01/23 The patient is an INPATIENT: Yes Changes since office visit: No Cold of Flu in the past 2 weeks, No New Medical Problems, No Changes in Medication and No Patient answered all questions The patient has been examined within 24 hours of the surgical procedure. The History & Physical has been completed within 30 days and I have reviewed it.: Yes Section B - Complete if H&P > 30 days Chief Complaint: Fall Allergies: Allergies Allergy/AdvReac Type Severity Reaction Status Date / Time horseradish [HORSERADISH] Allergy Severe Involuntary Verified 12/01/23 14:28 Spasms erythromycin base Allergy Intermediate Hives Verified 12/01/23 14:28 [ERYTHROMYCIN BASE] naproxen [From Aleve] Allergy Intermediate Hives Verified 12/01/23 14:28 beet [BEET] Allergy Unknown Unknown Verified 12/01/23 14:28 milk [MILK] Allergy Unknown Stomach Verified 12/01/23 14:28 pain, Vomits nut - unspecified [nut] Allergy Unknown Unknown Verified 12/01/23 14:28 raspberry Allergy Unknown Unknown Verified 12/01/23 14:28 sunflower seed Allergy Unknown Unknown Verified 12/01/23 14:28 aspirin [ASA] AdvReac Intermediate Nose Bleed Verified 12/01/23 14:28 TURNIP Allergy Unknown Unknown Uncoded 12/01/23 14:28 Plan I have reviewed the history and physical and performed a pertinent physical examination on my patient. No changes have occurred unless specified. Time Spent With Patient Time: Total time managing care of this patient today ____ minutes.
--- NOTE | 2023-12-01 16:17 | MHC.CM.PN ---
CM ATTEMPTED TO MEET WITH PT SEVERAL TIMES PT OFF UNIT CM TO REVISIT
--- NOTE | 2023-12-01 17:22 | P.BOP_ITS ---
Brief Operative Note Date of Service: 12/01/23 Pre-op diagnosis: Right hip IT fx Post-op diagnosis: same Procedure: Right hip IMN Implants: Donta 125 x [id number] with 85 mm hip screw and 35 distal interlock Surgeon: Lauro Stern MD Anesthesia: GETA and local Was an System Support Administrator used for this Procedure?: Yes System Support Administrator: Anisha Simpson Estimated blood loss (mL): 100 IV fluids (mL): 1,000 Pathology: none sent Condition: stable Disposition: PACU
[2023-12-01] MEDS: ceFAZolin Sodium/Dextrose,Iso 2 GM/50 ML PIGGYBACK IV (21:37)
[2023-12-01] MEDS: PHENobarbitaL sodium 130 MG/ML VIAL IM Q3Hx2 120 MG IM (21:37)
[2023-12-02] MEDS: PHENobarbitaL sodium 130 MG/ML VIAL IM Q3Hx2 120 MG IM (00:46)
[2023-12-02] MEDS: Lactated Ringers 1,000 ML 80 ML IVCONT (02:33)
[2023-12-02 02:51] VITALS: BP 111/68; PULSE 85; RESP 18; TEMP 36.7; O2SAT 98
[2023-12-02 07:21] VITALS: BP 121/70; PULSE 82; RESP 14; TEMP 36.3; O2SAT 98
[2023-12-02] MEDS: PHENobarbitaL 15 MG TABLET 45 MG PO ×2 (07:31→20:41)
[2023-12-02] MEDS: Folic Acid 1 MG TABLET PO (07:31)
[2023-12-02] MEDS: Thiamine HCL 100 MG TABLET PO (07:31)
[2023-12-02] MEDS: Morphine Sulfate 2 MG/ML CARTRIDGE IVPUSH ×3 (07:31→20:40)
[2023-12-02] MEDS: 0.9 % Sodium Chloride Flush 3 ML SYRINGE IVFLUSH ×3 (07:36→20:44)
--- NOTE | 2023-12-02 08:17 | P.PNOP_ITS ---
Subjective Subjective Date of Service: 12/02/23 Interval history: POD 1 s/p RT hip IMN no overnight events resting in bed denies cp,sob,palpitations Physical Exam Vital Signs: Vital Signs: Last Vital Signs Temp 97.3 F 12/02/23 07:21 Pulse 82 12/02/23 07:21 Resp 14 12/02/23 07:21 BP 121/70 12/02/23 07:21 Pulse Ox 98 12/02/23 07:21 O2 Del Method Room Air 12/02/23 07:21 O2 Flow Rate 6 12/01/23 17:45 BMI result Body Mass Index 19.6 Const: General: cooperative, healthy appearing and no acute distress Resp: Effort & Inspection: normal respiratory effort and able to speak in complete sentences Cardio: Rate: regular rate Peripheral pulses: Peripheral pulses 2+ throughout GI: Palpation (GI): Soft to palpation Skin: General skin exam: no rashes or lesions noted Extrem: Other: Right hip proximal bandage stained she has good sensation and distal pulses she is able to dorsi and plantar flex nvi Procedures Date of Service Date of Service: 12/02/23 Progress Note: A&P Assessment and plan (1) Intertrochanteric fracture of right hip: Status: Acute Assessment and Plan: * Continue pain mgmnt * Begin lovenox for dvt ppx * begin PT / OT for Rt hip IMN * Dispo planning-Pending PT eval, pain mgmnt Need for continued inpatient stay: PT and med clearance Time Spent With Patient Time: Total time managing care of this patient today ____ minutes. Quality Stroke Does the patient have a stroke diagnosis?: No VTE Prior VTE?: No VTE Risk Level:: Medical - moderate - high VTE Device Contraindication: Treatment Not Indicated VTE Drug Contraindication: Treatment Not Indicated
[2023-12-02 08:28] VITALS: BP 121/70; PULSE 82; O2SAT 98
[2023-12-02 08:53] LABS: Hemoglobin 8.9 g/dl (12.0-16.0)
--- NOTE | 2023-12-02 09:28 | MHC.CM.PN ---
Addendum entered by Zuleima Condon 12/02/23 16:11: Patients spouse came to discuss the discharge plan. He agrees with [facility] for STR. The pt and agree to the dc plan. They understand that the facility has submitted for auth; but may not receive it over the weekend. DP [facility] via BLS. Addendum entered by Zuleima Condon 12/02/23 14:23: STR preferences were obtained. Referrals were sent. The patients choice is [facility]. [facility] has been notified. The STR has sent for insurance authorization. DP [facility] for STR via BLS. Original Note: IMM 12/02/23 Female S/P fall She lives with her spouse. A copy of her HCP has been requested. She does not use an AD; but owns a walker + cane. Pt uses a shower bench. She will need a PT eval to assist with disposition @ discharge. DP Home w services vs STR/Acute rehab. She has been to [facility] x 2 and they are 1st choice. She does not want to return to [facility]. She was not satisfied with the amount of therapy provided.
--- NOTE | 2023-12-02 09:50 | P.PNIM_ITS ---
Subjective Subjective Date of Service: 12/03/23 Interval History: F/U on Intertrochanteric fracture of right hip 8/ pain in the hip, did well with PT, no sings of alcohol withdrawal Physical Exam 2 Vital Signs: Vital Signs: Last Vital Signs Temp 97.3 F 12/02/23 07:21 Pulse 82 12/02/23 08:28 Resp 14 12/02/23 07:21 BP 121/70 12/02/23 08:28 Pulse Ox 98 12/02/23 08:28 O2 Del Method Room Air 12/02/23 07:21 O2 Flow Rate 6 12/01/23 17:45 BMI result Body Mass Index 19.6 General: A&0 x 3, no acute distress CVS: Normal rate and regular rhythm, normal S1/S2 Pulm: Clear to auscultation bilaterally, no increased respiratory effort Extremities: Normal capillary refill, pulses 2+ throughout Neuro: No gross abnormality skin incision site d/c/i Psych: Cooperative, normal affect, normal thought process Objective Data Active Medications Acetaminophen (Acetaminophen 325 Mg Tablet) 650 mg PO Q6H PRN PRN Reason: Pain, Mild (Pain Scale 1-3) Enoxaparin Sodium (Enoxaparin Sodium 40 Mg/0.4 Ml Syringe) 40 mg SUBCUT Q24H [facility] Folic Acid (Folic Acid 1 Mg Tablet) 1 mg PO DAILY [facility] Stop: 12/03/23 09:01 Last Admin: 12/02/23 07:31 Dose: 1 mg Documented By: MARIEL Melatonin (Melatonin 3 Mg Tablet) 6 mg PO BEDTIME PRN PRN Reason: Insomnia Morphine Sulfate (Morphine Sulfate 2 Mg/Ml Cartridge) 2 mg IVPUSH Q4H PRN; Protocol PRN Reason: Pain, Severe (Pain Scale 7-10) Last Admin: 12/02/23 07:31 Dose: 2 mg Documented By: MARIEL Ondansetron HCl (Ondansetron Hcl 4 Mg/2 Ml Vial) 4 mg IVPUSH Q8H PRN PRN Reason: Nausea and Vomiting Last Admin: 12/01/23 05:47 Dose: 4 mg Documented By: BENITO Pharmacy Consult (Consult Rx Etoh Phenob Im/Po) 1 each MISCELLANE ONCE PRN; Protocol PRN Reason: Consult order Phenobarbital (Phenobarbital 15 Mg Tablet) 45 mg PO BID [facility] Stop: 12/03/23 21:01 Last Admin: 12/02/23 07:31 Dose: 45 mg Documented By: MARIEL Phenobarbital (Phenobarbital 15 Mg Tablet) 15 mg PO BID [facility] Stop: 12/05/23 21:01 Phenobarbital (Phenobarbital 15 Mg Tablet) 15 mg PO DAILY [facility] Stop: 12/07/23 09:01 Sodium Chloride (0.9 % Sodium Chloride Flush 3 Ml Syringe) 3 ml IVFLUSH QSHIFT [facility] Last Admin: 12/02/23 07:36 Dose: 3 ml Documented By: MARIEL Thiamine HCl (Thiamine Hcl 100 Mg Tablet) 100 mg PO DAILY [facility] Last Admin: 12/02/23 07:31 Dose: 100 mg Documented By: MARIEL Labs 12/03/23 05:35 12/02/23 10:24 Assessment and Plan (1) Alcohol abuse: Status: Acute (2) Hip fracture: Status: Acute Plan 78/F w/ HTN, etoh use d/o, alcohol use disorder admited for r hip fracture d/t to mechanical fall Right subtrochanteric femoral fracture due to mechanical fal ORIF on 12/01, PT/OT, Lovenox for dvt prevention; Oxy, morphine for pain Alcohol use disorder, high risk for withdrawal, no withdrawal symptoms -phenobarbital protocol to sahuna withdrawal, thiamine and folate HTN, hold lisinopril, BP nl Osteoporosis Alendronate weekly Elevated transaminases: Likely in the setting of alcohol use, outpatient follow- up Chronic anemia with acute drop from hip fracture, monitor, no indication for transfusion at this time DVT prophylaxis: lovneox inpt for post hip surgery care, and pt eval for appropriate Quality Stroke Does the patient have a stroke diagnosis?: No VTE Prior VTE?: No VTE Risk Level:: Medical - moderate - high VTE Device Contraindication: Treatment Not Indicated VTE Drug Contraindication: Treatment Not Indicated
[2023-12-02 11:09] LABS: Anion Gap 17 (12-20); Blood Urea Nitrogen 21 mg/dL (9-16); Carbon Dioxide 23 mmol/L (22-29); Chloride 97 mmol/L (96-108); Creatinine Clr Calc Pharmacy 33.7; Estimated Glomerular Filt Rate 47; Glucose Random 224 mg/dL (60-115); Sodium 132 mmol/L (135-145)
--- NOTE | 2023-12-02 13:39 | HO.POSTANES ---
Post Anesthesia Evaluation Post Anesthesia Evaluation Date of Service: 12/02/23 Vital Signs: Vital Signs Temp Pulse Resp BP Pulse Ox O2 Del Method 12/02/23 08:28 82 121/70 98 12/02/23 07:21 97.3 F 82 14 121/70 98 Room Air 12/02/23 02:51 98.0 F 85 18 111/68 98 Room Air Anesthesia: General Mental Status: Awake Pain Control: Satisfactory Nausea/Vomiting: None Hydration: Adequate Anesthesia-Related Issues: No Anes. Related Issues
[2023-12-02 15:31] VITALS: BP 105/57; PULSE 90; RESP 18; TEMP 37.2; O2SAT 98
[2023-12-02] MEDS: Enoxaparin Sodium 40 MG/0.4 ML SYRINGE SUBCUT (16:40)
[2023-12-02 19:48] VITALS: BP 101/58; PULSE 103; RESP 18; TEMP 36.5; O2SAT 97
[2023-12-02] MEDS: Acetaminophen 325 MG TABLET 650 MG PO (23:56)
[2023-12-03] VITALS (11 sets, daily range): BP systolic 98–117; BP diastolic 55–67; PULSE 80–96; RESP 16–18; TEMP 36.2–36.8; O2SAT 96–98
[2023-12-03] MEDS: Morphine Sulfate 2 MG/ML CARTRIDGE IVPUSH ×2 (02:48→08:12)
[2023-12-03 06:20] LABS: PLT CLUMP 1; Red Cell Distribution Width 12.6 % (11.0-16.0)
[2023-12-03 06:22] LABS: Hemoglobin 7.1 g/dl (12.0-16.0); Mean Corpuscular HGB Conc 35.9 g/dl (31.0-35.0); Mean Corpuscular Hemoglobin 34.5 pg (27.0-33.0); Mean Corpuscular Volume 96.1 fL (80.0-98.0); Mean Platelet Volume 11.4 fL (9.4-12.3); Red Blood Count 2.06 X10*6/uL (4.20-5.50)
[2023-12-03 06:42] LABS: Platelet Count 67 X10*3/uL (160-400); White Blood Count 5.4 X10*3/uL (4.8-10.8)
[2023-12-03 06:45] LABS: Hematocrit 19.8 % (37.0-47.0)
[2023-12-03] MEDS: 0.9 % Sodium Chloride Flush 3 ML SYRINGE IVFLUSH ×2 (08:17→21:34)
--- NOTE | 2023-12-03 08:17 | HO.PM.IMPN ---
Subjective Subjective Date of Service: 12/03/23 Interval History: F/U on Intertrochanteric fracture of right hip s/p repair / pain in the hip, H/H significantly low Physical Exam Vital Signs: Vital Signs: Last Vital Signs Temp 97.9 F 12/03/23 08:16 Pulse 87 12/03/23 08:16 Resp 16 12/03/23 08:16 BP 106/55 L 12/03/23 08:16 Pulse Ox 97 12/03/23 08:00 O2 Del Method Room Air 12/03/23 08:00 O2 Flow Rate 6 12/01/23 17:45 BMI result Body Mass Index 19.6 General: A&0 x 3, no acute distress CVS: Normal rate and regular rhythm, normal S1/S2 Pulm: Clear to auscultation bilaterally, no increased respiratory effort Extremities: Normal capillary refill, pulses 2+ throughout Neuro: No gross abnormality skin incision site d/c/i Psych: Cooperative, normal affect, normal thought process Objective Data Active Medications Acetaminophen (Acetaminophen 325 Mg Tablet) 650 mg PO Q6H PRN PRN Reason: Pain, Mild (Pain Scale 1-3) Last Admin: 12/02/23 23:56 Dose: 650 mg Documented By: ARIAS Enoxaparin Sodium (Enoxaparin Sodium 40 Mg/0.4 Ml Syringe) 40 mg SUBCUT Q24H [facility] Last Admin: 12/02/23 16:40 Dose: 40 mg Documented By: MARIEL Folic Acid (Folic Acid 1 Mg Tablet) 1 mg PO DAILY [facility] Stop: 12/03/23 09:01 Last Admin: 12/02/23 07:31 Dose: 1 mg Documented By: MARIEL Melatonin (Melatonin 3 Mg Tablet) 6 mg PO BEDTIME PRN PRN Reason: Insomnia Morphine Sulfate (Morphine Sulfate 2 Mg/Ml Cartridge) 2 mg IVPUSH Q4H PRN; Protocol PRN Reason: Pain, Severe (Pain Scale 7-10) Last Admin: 12/03/23 08:12 Dose: 2 mg Documented By: GIOVANNY Ondansetron HCl (Ondansetron Hcl 4 Mg/2 Ml Vial) 4 mg IVPUSH Q8H PRN PRN Reason: Nausea and Vomiting Last Admin: 12/01/23 05:47 Dose: 4 mg Documented By: BENITO Pharmacy Consult (Consult Rx Etoh Phenob Im/Po) 1 each MISCELLANE ONCE PRN; Protocol PRN Reason: Consult order Phenobarbital (Phenobarbital 15 Mg Tablet) 45 mg PO BID [facility] Stop: 12/03/23 21:01 Last Admin: 12/02/23 20:41 Dose: 45 mg Documented By: ARIAS Phenobarbital (Phenobarbital 15 Mg Tablet) 15 mg PO BID [facility] Stop: 12/05/23 21:01 Phenobarbital (Phenobarbital 15 Mg Tablet) 15 mg PO DAILY [facility] Stop: 12/07/23 09:01 Sodium Chloride (0.9 % Sodium Chloride Flush 3 Ml Syringe) 3 ml IVFLUSH QSHIFT [facility] Last Admin: 12/02/23 20:44 Dose: 3 ml Documented By: ARIAS Thiamine HCl (Thiamine Hcl 100 Mg Tablet) 100 mg PO DAILY [facility] Last Admin: 12/02/23 07:31 Dose: 100 mg Documented By: MARIEL Labs 12/03/23 05:35 12/02/23 10:24 Labs: Laboratory Results - last 24 hr 12/01/23 12/02/23 12/03/23 04:55 10:24 05:35 MCV 96.1 MCH 34.5 H MCHC 35.9 H RDW 12.6 Plt Count 67 L D MPV 11.4 Absolute Nucleated RBC 0.000 Nucleated RBC % (auto) 0.0 Anion Gap 17 Estim Creat Clear Calc 33.7 Estimated GFR 47 Random Glucose 224 H Calcium 8.0 L Blood Type O Positive Antibody Screen NEGATIVE Crossmatch See Detail Assessment and Plan (1) Alcohol abuse: Status: Acute (2) Hip fracture: Status: Acute Plan 78/F w/ HTN, etoh use d/o, alcohol use disorder admited for r hip fracture d/t to mechanical fall Right Hip fracture Fixed on 12/01, PT/OT, Lovenox for dvt prevention; Oxy, morphine for pain ABLA on top of chronic anemia, d/t hip fracture -Transfuse 2 units, consent obtained, check tomorrow Alcohol use disorder, high risk for withdrawal, no withdrawal symptoms -phenobarbital protocol to shauna withdrawal, thiamine and folate HTN, hold lisinopril, BP nl Osteoporosis Alendronate weekly Elevated transaminases: Likely in the setting of alcohol use, outpatient follow-up DVT prophylaxis: lovneox inpt for post hip surgery care, and pt eval for appropriate Quality Stroke Does the patient have a stroke diagnosis?: No VTE Prior VTE?: No VTE Risk Level:: Medical - moderate - high VTE Device Contraindication: Treatment Not Indicated VTE Drug Contraindication: Treatment Not Indicated
[2023-12-03] MEDS: Folic Acid 1 MG TABLET PO (10:20)
[2023-12-03] MEDS: Thiamine HCL 100 MG TABLET PO (10:20)
--- NOTE | 2023-12-03 11:10 | P.PNOP_ITS ---
Subjective Subjective Date of Service: 12/03/23 Interval history: POD 2 s/p RT hip IMN no overnight events resting in chair-states there is pain with standing on the leg denies cp,sob,palpitations Physical Exam Vital Signs: Vital Signs: Last Vital Signs Temp 97.9 F 12/03/23 08:33 Pulse 87 12/03/23 08:33 Resp 17 12/03/23 08:33 BP 117/65 12/03/23 08:33 Pulse Ox 97 12/03/23 08:00 O2 Del Method Room Air 12/03/23 08:00 O2 Flow Rate 6 12/01/23 17:45 BMI result Body Mass Index 19.6 Const: General: cooperative, healthy appearing and no acute distress Resp: Effort & Inspection: normal respiratory effort and able to speak in complete sentences Cardio: Rate: regular rate Peripheral pulses: Peripheral pulses 2+ throughout GI: Palpation (GI): Soft to palpation Skin: General skin exam: no rashes or lesions noted Extrem: Other: Right hip proximal bandage stained she has good sensation and distal pulses she is able to dorsi and plantar flex nvi Procedures Date of Service Date of Service: 12/03/23 Progress Note: A&P Assessment and plan (1) Intertrochanteric fracture of right hip: Status: Acute Assessment and Plan: * Continue pain mgmnt * lovenox for dvt ppx * PT / OT for Rt hip IMN * h/h low-medicine orders 2 units * Dispo planning-ok to dc to rehab from ortho standpoint Time Spent With Patient Time: Total time managing care of this patient today ____ minutes. Quality Stroke Does the patient have a stroke diagnosis?: No VTE Prior VTE?: No VTE Risk Level:: Medical - moderate - high VTE Device Contraindication: Treatment Not Indicated VTE Drug Contraindication: Treatment Not Indicated
[2023-12-03] MEDS: Enoxaparin Sodium 40 MG/0.4 ML SYRINGE SUBCUT (15:54)
[2023-12-03] MEDS: Acetaminophen 325 MG TABLET 650 MG PO (15:58)
[2023-12-03] MEDS: oxyCODONE HCl Immed Release 5 MG TABLET PO (21:30)
[2023-12-03] MEDS: Melatonin 3 MG TABLET 6 MG PO (21:30)
[2023-12-04 04:00] VITALS: BP 100/55; PULSE 82; RESP 18; TEMP 36.6; O2SAT 96
[2023-12-04] MEDS: PHENobarbitaL 15 MG TABLET PO ×2 (07:42→20:31)
[2023-12-04] MEDS: oxyCODONE HCl Immed Release 5 MG TABLET PO ×2 (07:42→14:09)
[2023-12-04] MEDS: Thiamine HCL 100 MG TABLET PO (07:42)
[2023-12-04 07:50] VITALS: BP 110/72; PULSE 85; RESP 18; TEMP 36.6; O2SAT 97
--- NOTE | 2023-12-04 08:28 | P.PNIM_ITS ---
Subjective Subjective Date of Service: 12/04/23 Interval History: c/o pain in the hip, leg Physical Exam 2 Vital Signs: Vital Signs: Last Vital Signs Temp 97.8 F 12/04/23 07:50 Pulse 85 12/04/23 07:50 Resp 18 12/04/23 07:50 BP 110/72 12/04/23 07:50 Pulse Ox 97 12/04/23 07:50 O2 Del Method Room Air 12/04/23 07:50 O2 Flow Rate 6 12/01/23 17:45 BMI result Body Mass Index 19.6 General: A&0 x 3, no acute distress CVS: Normal rate and regular rhythm, normal S1/S2 Pulm: Clear to auscultation bilaterally, no increased respiratory effort Extremities: Normal capillary refill, pulses 2+ throughout Neuro: No gross abnormality skin incision site d/c/i Psych: Cooperative, normal affect, normal thought process Objective Data Active Medications Acetaminophen (Acetaminophen 325 Mg Tablet) 650 mg PO Q6H PRN PRN Reason: Pain, Mild (Pain Scale 1-3) Last Admin: 12/03/23 15:58 Dose: 650 mg Documented By: GIOVANNY Enoxaparin Sodium (Enoxaparin Sodium 40 Mg/0.4 Ml Syringe) 40 mg SUBCUT Q24H [facility] Last Admin: 12/03/23 15:54 Dose: 40 mg Documented By: GIOVANNY Melatonin (Melatonin 3 Mg Tablet) 6 mg PO BEDTIME PRN PRN Reason: Insomnia Last Admin: 12/03/23 21:30 Dose: 6 mg Documented By: DIMITRI Morphine Sulfate (Morphine Sulfate 2 Mg/Ml Cartridge) 2 mg IVPUSH Q4H PRN; Protocol PRN Reason: Pain, Severe (Pain Scale 7-10) Last Admin: 12/03/23 08:12 Dose: 2 mg Documented By: GIOVANNY Ondansetron HCl (Ondansetron Hcl 4 Mg/2 Ml Vial) 4 mg IVPUSH Q8H PRN PRN Reason: Nausea and Vomiting Last Admin: 12/01/23 05:47 Dose: 4 mg Documented By: BENITO Oxycodone HCl (Oxycodone Hcl Immed Release 5 Mg Tablet) 5 mg PO Q6H PRN PRN Reason: Pain, Severe (Pain Scale 7-10) Last Admin: 12/04/23 07:42 Dose: 5 mg Documented By: JENNIFER Pharmacy Consult (Consult Rx Etoh Phenob Im/Po) 1 each MISCELLANE ONCE PRN; Protocol PRN Reason: Consult order Phenobarbital (Phenobarbital 15 Mg Tablet) 15 mg PO BID [facility] Stop: 12/05/23 21:01 Last Admin: 12/04/23 07:42 Dose: 15 mg Documented By: JENNIFER Phenobarbital (Phenobarbital 15 Mg Tablet) 15 mg PO DAILY [facility] Stop: 12/07/23 09:01 Sodium Chloride (0.9 % Sodium Chloride Flush 3 Ml Syringe) 3 ml IVFLUSH QSHIFT [facility] Last Admin: 12/04/23 07:18 Dose: Not Given Documented By: JENNIFER Non-Admin Reason: See Note Thiamine HCl (Thiamine Hcl 100 Mg Tablet) 100 mg PO DAILY [facility] Last Admin: 12/04/23 07:42 Dose: 100 mg Documented By: JENNIFER Labs 12/03/23 05:35 12/02/23 10:24 Labs: Laboratory Results - last 24 hr 12/01/23 04:55 Blood Type O Positive Antibody Screen NEGATIVE Crossmatch See Detail Assessment and Plan (1) Alcohol abuse: Status: Acute (2) Hip fracture: Status: Acute Plan 78/F w/ HTN, etoh use d/o, alcohol use disorder admited for r hip fracture d/t to mechanical fall Right Hip fracture Fixed on 12/01, PT/OT, Lovenox for dvt prevention; Oxy, morphine for pain ABLA on top of chronic anemia, d/t hip fracture -Transfused 2 units on 12/03, H/H pending Alcohol use disorder, high risk for withdrawal, no withdrawal symptoms -phenobarbital protocol to shauna withdrawal, thiamine and folate HTN, hold lisinopril, BP nl Osteoporosis Alendronate weekly Elevated transaminases: Likely in the setting of alcohol use, outpatient follow- up DVT prophylaxis: lovneox inpt for post hip surgery care, and pt eval for appropriate PT recommends STR Quality Stroke Does the patient have a stroke diagnosis?: No VTE Prior VTE?: No VTE Risk Level:: Medical - moderate - high VTE Device Contraindication: Treatment Not Indicated VTE Drug Contraindication: Treatment Not Indicated
[2023-12-04 08:37] LABS: Hematocrit 29.1 % (37.0-47.0); Hemoglobin 10.1 g/dl (12.0-16.0); Mean Corpuscular HGB Conc 34.7 g/dl (31.0-35.0); Mean Corpuscular Hemoglobin 32.2 pg (27.0-33.0); Mean Corpuscular Volume 92.7 fL (80.0-98.0); Mean Platelet Volume 11.5 fL (9.4-12.3); Red Blood Count 3.14 X10*6/uL (4.20-5.50); Red Cell Distribution Width 14.9 % (11.0-16.0); White Blood Count 4.6 X10*3/uL (4.8-10.8)
[2023-12-04 08:43] LABS: Platelet Count 57 X10*3/uL (160-400)
[2023-12-04] MEDS: Acetaminophen 325 MG TABLET 650 MG PO (14:09)
[2023-12-04 15:40] VITALS: BP 120/79; PULSE 82; RESP 17; TEMP 36.1; O2SAT 98
[2023-12-04] MEDS: Enoxaparin Sodium 40 MG/0.4 ML SYRINGE SUBCUT (16:16)
[2023-12-04 19:42] VITALS: BP 110/56; PULSE 83; RESP 18; TEMP 36.7; O2SAT 98
[2023-12-04] MEDS: Morphine Sulfate 2 MG/ML CARTRIDGE IVPUSH (20:31)
[2023-12-04] MEDS: 0.9 % Sodium Chloride Flush 3 ML SYRINGE IVFLUSH (20:32)
[2023-12-05] MEDS: Morphine Sulfate 2 MG/ML CARTRIDGE IVPUSH ×4 (02:03→15:26)
[2023-12-05] MEDS: oxyCODONE HCl Immed Release 5 MG TABLET PO ×4 (02:54→23:42)
[2023-12-05 03:26] VITALS: BP 113/76; PULSE 65; RESP 16; TEMP 36.1; O2SAT 97
--- NOTE | 2023-12-05 04:05 | PC.NURSE ---
Addendum entered by Sofia Cosme RN 12/05/23 04:43: Pt straight catheterized for 520mls. Original Note: Pt's figueroa removed by previous shift, Pt has no output via purewick and remains dry, Bladder scanned for 559mls, MD Dr Devlin made aware, straight cath ordered.
[2023-12-05 06:51] VITALS: BP 134/71; PULSE 80; RESP 17; TEMP 36.1; O2SAT 99
[2023-12-05] MEDS: Thiamine HCL 100 MG TABLET PO (07:49)
[2023-12-05] MEDS: PHENobarbitaL 15 MG TABLET PO ×2 (07:49→21:16)
[2023-12-05] MEDS: 0.9 % Sodium Chloride Flush 3 ML SYRINGE IVFLUSH ×3 (07:49→21:18)
[2023-12-05 08:03] LABS: Hematocrit 29.4 % (37.0-47.0); Hemoglobin 10.1 g/dl (12.0-16.0); Mean Corpuscular HGB Conc 34.4 g/dl (31.0-35.0); Mean Corpuscular Hemoglobin 32.1 pg (27.0-33.0); Mean Corpuscular Volume 93.3 fL (80.0-98.0); Mean Platelet Volume 10.8 fL (9.4-12.3); Red Blood Count 3.15 X10*6/uL (4.20-5.50); Red Cell Distribution Width 14.6 % (11.0-16.0); White Blood Count 4.2 X10*3/uL (4.8-10.8)
[2023-12-05 08:04] LABS: Platelet Count 68 X10*3/uL (160-400)
[2023-12-05] MEDS: Acetaminophen 325 MG TABLET 650 MG PO ×2 (08:54→17:11)
--- NOTE | 2023-12-05 09:09 | PM.DS ---
DS: Providers Provider Date of Service: 12/06/23 Date of admission: 11/30/23 23:43 Primary care physician: Mounika Kellogg MD Consults: 12/01/23 04:30 Consult to Orthopedics Routine Consulting Provider: [facility] [place] [facility] [place] [facility] Reason for consultation: Right subtrochanteric femoral fracture DS: Diagnosis Discharge Diagnosis (1) Alcohol abuse: Status: Inactive (2) Hip fracture: Status: Acute DS: Summary Hospital Course Hospital Course: Admission HPI Chief Complaint: Fall This is a 78-year-old female with pertinent history of essential hypertension, alcohol use disorder who presents to the emergency department for evaluation after a fall. Patient states as she was getting into bed, she stepped onto something, slipped and fell on the right side. She did not lose consciousness prior to the fall. No jerking movement of extremities. No chest pain or palpitations prior to the fall. Reports increased pain on the right hip upon standing and difficulty moving right lower extremity due to pain. Patient states that she has been falling a lot over the last couple of weeks. She denies significant alcohol use or alcohol withdrawal but the states that she drinks about a L of whiskey per week. No fever, chills, chest discomfort, palpitations, shortness of breath, abdominal pain, changes in urinary or bowel habits. In the emergency department, imaging with right-sided subtrochanteric femoral fracture Hospital course: Right Hip fracture due to mechanical fall.. She had surgical reapair on 12/01 withot complication and has been having PT and OT and will need short term rehab. She's on Lovenox for DVT prophylaxis and oxycodone for pain. Acute blood loss anemia ( ABLA )on top of chronic anemia, d/t hip fracture, hemoglobin dropped to 7 from 10 after surgery and was transfused 2 units of RBC and hemoglobin has improved to 10. Thrombocytopenia--has chornic thrombocytopenia, likely related chronic alcoholism and worsened after surgery to 57 and is trending up to 69 , then 64.. and is pretty much stable now, and doesn't appear to be consistent with HIT, given that Plat count has been stable, will continue Lovenox and continue to monitor platlets level Alcohol use disorder, high risk for withdrawal, but there was no sings of withdrawal and was on phenobarbital to prevent alcohol withdrawal HTN. She takes Lisinopril 20 mg daily, blood pressure has been normal without medication Osteoporosis Alendronate weekly Elevated transaminases: Likely in the setting of alcohol use, outpatient follow-up Time Attestation Discharge coordination time: Greater than 30 minutes Quality: Safe Use of Opioids Does Pt have an Active Cancer Diagnosis on the Problem List?: No Quality: Stroke Does the patient have a stroke diagnosis?: No Physical Exam Vital Signs: Vital Signs: Selected Entries 12/06/23 03:39 12/06/23 06:52 12/06/23 09:36 Temperature 98.6 F Pulse Rate 74 Respiratory Rate 17 Blood Pressure 138/75 Pulse Oximetry 99 Oxygen Delivery Me thod Room Air DS: Data Data Completed and Pending Labs on day of discharge: Laboratory Results - last 24 hr 12/05/23 07:49 WBC 4.2 L RBC 3.15 L Hgb 10.1 L Hct 29.4 L MCV 93.3 MCH 32.1 MCHC 34.4 RDW 14.6 Plt Count 68 L MPV 10.8 Absolute Nucleated RBC 0.000 Nucleated RBC % (auto) 0.0 Discharge Plan Discharge Anticipated Discharge Date/Time: 12/06/23 11:57 Patient Disposition: Xfer SNF Discharge Diagnosis: Right hip fracture, alcohol use desorder Referrals: [facility] [Outside] - 1 Week Madeline Miles PA-C [Physician Manga Artist] - 12/15/23 11:00 am Po,Mounika Madrigal MD [Primary Care Provider] - 1 Week Discharge Medications: New oxycodone 10 mg tablet 10 mg PO Q6H PRN (Reason: pain (scale score 7-10)) Qty: 20 0RF Rx Instructions: Partial Fill upon patient request. polyethylene glycol 3350 17 gram Powder In Packet 17 g PO DAILY PRN (Reason: Constipation) Qty: 30 0RF magnesium hydroxide [Milk of Magnesia] 400 mg/5 mL Suspension 30 ml PO DAILY PRN (Reason: Constipation) Qty: 355 0RF docusate sodium 100 mg Capsule 100 mg PO BID Qty: 60 0RF enoxaparin 40 mg/0.4 mL Syringe 40 mg subcut Q24H Qty: 36 0RF Continued alendronate 70 mg tablet 70 mg PO QWEEK 90 Days Qty: 13 3RF Discontinued lisinopril 20 mg tablet 20 mg PO DAILY Qty: 90 2RF No Action naloxone 4 mg/actuation spray,non-aerosol 4 mg intranasal Q3M PRN Rx Instructions: spray 1 dose into ONE nostril; alternate nostrils w each dose until help arrives acetaminophen [Tylenol 8 Hour] 650 mg tablet extended release 650 mg PO Q8H acetaminophen [Tylenol] 325 mg capsule 650 mg PO Q6H PRN Discharge Orders: Discharge Order (Routine); Ordered 12/06/23 Ordered By: Steven Desai Diet: Advance to usual diet Activity on Discharge: As tolerated Stand Alone Forms: Patient Portal Discharge page Print Language: Sami Care Plan Goals: Recovery from Hip fracture Health Concerns: Hip fracture Anemia Thrombocytopenia Plan of Treatment: To short term rehab follow CBC with attention to platlets level every 3 days, until there is an uptrend Gait training, strengthening, ADLs Continue anticoagulant for dvt prophylaxis with lovenox 40 mg daily for x6 weeks (36 more days) Keep dressing clean, dry and intact-no showering or tub baths Follow up with Orthopedics 12/15/23 at 11:00am Assessment: see above Discharge Date/Time: 12/06/23 18:00
--- NOTE | 2023-12-05 09:44 | P.PNIM_ITS ---
Subjective Subjective Date of Service: 12/05/23 Interval History: c/o pain in the hip, leg H/H is stable, but platlets dropping Physical Exam 2 Vital Signs: Vital Signs: Last Vital Signs Temp 97 F 12/05/23 06:51 Pulse 80 12/05/23 06:51 Resp 17 12/05/23 06:51 BP 134/71 12/05/23 06:51 Pulse Ox 99 12/05/23 06:51 O2 Del Method Room Air 12/05/23 06:51 O2 Flow Rate 6 12/01/23 17:45 BMI result Body Mass Index 19.6 General: A&0 x 3, no acute distress CVS: Normal rate and regular rhythm, normal S1/S2 Pulm: Clear to auscultation bilaterally, no increased respiratory effort Extremities: Normal capillary refill, pulses 2+ throughout Neuro: No gross abnormality skin incision site d/c/i Psych: Cooperative, normal affect, normal thought process Objective Data Active Medications Acetaminophen (Acetaminophen 325 Mg Tablet) 650 mg PO Q6H PRN PRN Reason: Pain, Mild (Pain Scale 1-3) Last Admin: 12/05/23 08:54 Dose: 650 mg Documented By: DON Enoxaparin Sodium (Enoxaparin Sodium 40 Mg/0.4 Ml Syringe) 40 mg SUBCUT Q24H [facility] Last Admin: 12/04/23 16:16 Dose: 40 mg Documented By: JENNIFER Melatonin (Melatonin 3 Mg Tablet) 6 mg PO BEDTIME PRN PRN Reason: Insomnia Last Admin: 12/03/23 21:30 Dose: 6 mg Documented By: DIMITRI Morphine Sulfate (Morphine Sulfate 2 Mg/Ml Cartridge) 2 mg IVPUSH Q4H PRN; Protocol PRN Reason: Pain, Severe (Pain Scale 7-10) Last Admin: 12/05/23 07:49 Dose: 2 mg Documented By: IRMA Ondansetron HCl (Ondansetron Hcl 4 Mg/2 Ml Vial) 4 mg IVPUSH Q8H PRN PRN Reason: Nausea and Vomiting Last Admin: 12/01/23 05:47 Dose: 4 mg Documented By: BENITO Oxycodone HCl (Oxycodone Hcl Immed Release 5 Mg Tablet) 5 mg PO Q6H PRN PRN Reason: Pain, Severe (Pain Scale 7-10) Last Admin: 12/05/23 08:54 Dose: 5 mg Documented By: DON Pharmacy Consult (Consult Rx Etoh Phenob Im/Po) 1 each MISCELLANE ONCE PRN; Protocol PRN Reason: Consult order Phenobarbital (Phenobarbital 15 Mg Tablet) 15 mg PO BID [facility] Stop: 12/05/23 21:01 Last Admin: 12/05/23 07:49 Dose: 15 mg Documented By: IRMA Phenobarbital (Phenobarbital 15 Mg Tablet) 15 mg PO DAILY [facility] Stop: 12/07/23 09:01 Sodium Chloride (0.9 % Sodium Chloride Flush 3 Ml Syringe) 3 ml IVFLUSH QSHIFT [facility] Last Admin: 12/05/23 07:49 Dose: 3 ml Documented By: IRMA Thiamine HCl (Thiamine Hcl 100 Mg Tablet) 100 mg PO DAILY [facility] Last Admin: 12/05/23 07:49 Dose: 100 mg Documented By: IRMA Labs 12/05/23 07:49 12/02/23 10:24 Labs: Laboratory Results - last 24 hr 12/05/23 07:49 MCV 93.3 MCH 32.1 MCHC 34.4 RDW 14.6 Plt Count 68 L MPV 10.8 Absolute Nucleated RBC 0.000 Nucleated RBC % (auto) 0.0 Assessment and Plan (1) Alcohol abuse: Status: Acute (2) Hip fracture: Status: Acute Plan 78/F w/ HTN, etoh use d/o, alcohol use disorder admited for r hip fracture d/t to mechanical fall Right Hip fracture Fixed on 12/01, PT/OT, Lovenox for dvt prevention; Oxy, morphine for pain ABLA on top of chronic anemia, d/t hip fracture -Transfused 2 units on 12/03, H/H is stable hgb 10 Thrombocytopenia--drop in platlets since admission, but appear stable will continue to closely monitor in light of Lovenox, if continues to drop may indicate some level HIT, recheck CBC tomorrow, if droping, then hold and hematology consult Alcohol use disorder, high risk for withdrawal, no withdrawal symptoms -phenobarbital protocol to shauna withdrawal, thiamine and folate HTN, hold lisinopril, BP nl Osteoporosis Alendronate weekly Elevated transaminases: Likely in the setting of alcohol use, outpatient follow- up DVT prophylaxis: lovneox inpt for post hip surgery care, and pt eval for appropriate PT recommends STR Quality Stroke Does the patient have a stroke diagnosis?: No VTE Prior VTE?: No VTE Risk Level:: Medical - moderate - high VTE Device Contraindication: Treatment Not Indicated VTE Drug Contraindication: Treatment Not Indicated
--- NOTE | 2023-12-05 12:10 | P.OP_ITS ---
Operative Note Operative Note Date of Service: 12/01/23 Narrative: Date of Service: 12/01/23 Pre-op diagnosis: Right hip IT fx Post-op diagnosis: same Procedure: Right hip IMN Implants: [place] 125 x [id number] with 85 mm hip screw and 35 distal interlock Surgeon: Lauro Stern MD Anesthesia: GETA and local Was an Utilization Management Um Nurse used for this Procedure?: Yes Utilization Management Um Nurse: Anisha Simpson Estimated blood loss (mL): 100 IV fluids (mL): 1,000 Pathology: none sent Condition: stable Disposition: PACU Procedure in detail: Patient was brought to the operating room and prepped and draped in standard sterile fashion. Time-out was called to identify proper site procedure proper surgeon and IV antibiotics per weight were administered. She was positioned on the fracture table and a traction and slight internal rotation were performed and biplanar fluoroscopy confirmed initial fracture reduction. I then made a stab incision proximal to the greater trochanter in using a guidewire made a entry point just lateral to the tip of the greater trochanter and placed a guidewire into the femoral metadiaphysis. I then over-reamed with 15 mm Reamer placed my ball-tip guidewire down distally in the femur and measured my length. I selected a 125 deg [id number] IM nail and reamed up to a 13. I inserted the nail. I then turned my attention to the hip screw where I used a guidewire and a tip apex distance of less than 1.5 measured an 85mm hip screw. I then pre-drilled and placed the hip screw using biplanar fluoroscopy. Once I was satisfied with the position of the hip screw I turned my attention to the distal aspect of the nail. Using the static guide I placed 1 distal interlocking screw in standard AO technique. I then removed all I then placed my set screw proximally and removed all extraneous instrumentation. Final biplanar radiographs were taken. I was satisfied with the position of the hardware and the fracture reduction. I think copiously irrigated closed with absorbable sutures alfred and injected 30 mL of into the area of the incisions. Traction was let down patient was placed in sterile dressing awakened from anesthesia brought to recovery room stable condition there were no known complications.
--- NOTE | 2023-12-05 12:43 | MHC.CM.PN ---
Per MD rounds No discharge today, due to Urinary retention. The facility has been notified that discharge is on hold. DP [facility] via BLS when medically cleared.
[2023-12-05 15:23] VITALS: BP 102/60; PULSE 82; RESP 16; TEMP 36.8; O2SAT 98
[2023-12-05] MEDS: Enoxaparin Sodium 40 MG/0.4 ML SYRINGE SUBCUT (15:26)
--- NOTE | 2023-12-05 18:45 | PC.NURSE ---
Patient has not voided during shift. Bladder scan for 309mL; provider notified.
[2023-12-05 20:00] VITALS: BP 123/65; PULSE 89; RESP 18; TEMP 37.1; O2SAT 99
[2023-12-06 03:39] VITALS: BP 138/75; PULSE 82; RESP 17; TEMP 37; O2SAT 99
[2023-12-06] MEDS: Morphine Sulfate 2 MG/ML CARTRIDGE IVPUSH (03:48)
--- NOTE | 2023-12-06 04:59 | PC.NURSE ---
Addendum entered by Marjorie Mace RN 12/06/23 05:04: right hip surgical dressing noted as soaked, dressing changed, wounds are well approximated, alfred intact, minimal bloody discharge noted on hip surgical site, crusted dry blood noted on the thigh area, cleansed with NSS, Xeroform and dry sterile gauze apllied covered with tegaderm Original Note: Pt void in scanty amount on a pad, bladder scan at 9592=280 ml, Dr. Garcia was notified as no adequate urine since yesterday, straight cath done aeptically with 550ml output dark orange urine, encouraged increase po fluid.
[2023-12-06 06:52] VITALS: BP 139/70; PULSE 74; RESP 17; TEMP 35.5; O2SAT 98
[2023-12-06] MEDS: Thiamine HCL 100 MG TABLET PO (08:13)
[2023-12-06] MEDS: PHENobarbitaL 15 MG TABLET PO (08:13)
[2023-12-06] MEDS: oxyCODONE HCl Immed Release 5 MG TABLET PO (08:13)
[2023-12-06] MEDS: Acetaminophen 325 MG TABLET 650 MG PO (08:13)
[2023-12-06] MEDS: Docusate Sodium 100 MG CAPSULE PO (08:13)
[2023-12-06] MEDS: Milk of Magnesia 30 ML ORAL.SUSP PO (08:14)
[2023-12-06] MEDS: 0.9 % Sodium Chloride Flush 3 ML SYRINGE IVFLUSH (08:16)
[2023-12-06 09:09] LABS: Hematocrit 29.3 % (37.0-47.0); Hemoglobin 10.2 g/dl (12.0-16.0); Mean Corpuscular HGB Conc 34.8 g/dl (31.0-35.0); Mean Corpuscular Hemoglobin 32.3 pg (27.0-33.0); Mean Corpuscular Volume 92.7 fL (80.0-98.0); Mean Platelet Volume 11.5 fL (9.4-12.3); Red Blood Count 3.16 X10*6/uL (4.20-5.50); Red Cell Distribution Width 14.5 % (11.0-16.0); White Blood Count 5.3 X10*3/uL (4.8-10.8)
[2023-12-06 09:11] LABS: Platelet Count 64 X10*3/uL (160-400)
[2023-12-06 09:36] VITALS: BP 139/70; PULSE 74; O2SAT 98
[2023-12-06] MEDS: polyethylene glycoL 3350 17 GM POWD.PACK PO (12:35)
[2023-12-06] MEDS: oxyCODONE HCl Immed Release 5 MG TABLET 10 MG PO (13:11)
--- NOTE | 2023-12-06 13:20 | MHC.CM.PN ---
Patient is discharged today to [facility] for STR. 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
--- NOTE | 2023-12-06 14:49 | P.PNOP_ITS ---
Subjective Subjective Date of Service: 12/06/23 Interval history: POD 5 s/p RT hip IMN no overnight events resting in chair-states there is pain with standing on the leg denies cp,sob,palpitations Physical Exam Vital Signs: Vital Signs: Last Vital Signs Temp 96 F L 12/06/23 06:52 Pulse 74 12/06/23 09:36 Resp 17 12/06/23 06:52 BP 139/70 12/06/23 09:36 Pulse Ox 98 12/06/23 09:36 O2 Del Method Room Air 12/06/23 06:52 O2 Flow Rate 6 12/01/23 17:45 BMI result Body Mass Index 19.6 Const: General: cooperative, healthy appearing and no acute distress Resp: Effort & Inspection: normal respiratory effort and able to speak in complete sentences Cardio: Rate: regular rate Peripheral pulses: Peripheral pulses 2+ throughout GI: Palpation (GI): Soft to palpation Skin: General skin exam: no rashes or lesions noted Extrem: Other: Right hip bandage intact she has good sensation and distal pulses she is able to dorsi and plantar flex nvi Procedures Date of Service Date of Service: 12/06/23 Progress Note: A&P Assessment and plan (1) Intertrochanteric fracture of right hip: Status: Acute Assessment and Plan: * Continue pain mgmnt * resume eliquis * PT / OT for Rt hip IMN * h/h low-medicine orders 2 units * Dispo planning-ok to dc to rehab from ortho standpoint Time Spent With Patient Time: Total time managing care of this patient today ____ minutes. Quality Stroke Does the patient have a stroke diagnosis?: No VTE Prior VTE?: No VTE Risk Level:: Medical - moderate - high VTE Device Contraindication: Treatment Not Indicated VTE Drug Contraindication: Treatment Not Indicated
[2023-12-06 15:30] VITALS: BP 117/61; PULSE 75; RESP 17; TEMP 36.1; O2SAT 97
[2023-12-06] MEDS: Enoxaparin Sodium 40 MG/0.4 ML SYRINGE SUBCUT (17:27)
== END 2023-12-06 18:00 | disposition skilled nursing facility (03) | DRG 481 ==
LOC: HO.ED 22:23 → HO.EDOVER 23:49 → HO.S3 12-01 14:29
PROVIDERS: Nurse Practitioner Family; Orthopaedic Surgery; Physician Assistant; Admitting Provider Student in an Organized Health Care Education/Training Program; Emergency Provider Student in an Organized Health Care Education/Training Program; PCP Internal Medicine; Visit Provider Internal Medicine
PROC: 0QS636Z Reposition Right Upper Femur with Intramedullary Internal Fixation Device, Percutaneous Approach (ICD-10-PCS; principal; 2023-12-01 15:00)
DX: S72.21XA Displaced subtrochanteric fracture of right femur, initial encounter for closed fracture (principal); D62 Acute posthemorrhagic anemia; I10 Essential (primary) hypertension; D69.6 Thrombocytopenia, unspecified; F10.90 Alcohol use, unspecified, uncomplicated; W19.XXXA Unspecified fall, initial encounter; M81.0 Age-related osteoporosis without current pathological fracture; Y90.8 Blood alcohol level of 240 mg/100 ml or more; Z79.899 Other long term (current) drug therapy
CPT/HCPCS: 36415; 71045; 73502; 73560; 80048; 80053; 80307; 82607; 82746; 85014; 85018; 85025; 85027; 86850; 86900; 86901; 86923; 97110; 97116; 97162; 97166; 97530; 97535; 99285; C1713; C1758; J0131; J0690; J1100; J1170; J1650; J2270; J2371; J2405; J2560; J2704; J2795; J3010; J3411; J7120; P9016

== ENCOUNTER → 2023-11-30 23:43 | Outpatient (BNV) | payer MEDICARE, SELFPAY | PROVIDERS: Admitting Provider Student in an Organized Health Care Education/Training Program; Emergency Provider Student in an Organized Health Care Education/Training Program; PCP Internal Medicine; Visit Provider Student in an Organized Health Care Education/Training Program | DX: F10.10 Alcohol abuse, uncomplicated (principal); S72.009A Fracture of unspecified part of neck of unspecified femur, initial encounter for closed fracture | CPT/HCPCS: 99222; 99232; 99239 ==

== ENCOUNTER → 2023-11-30 23:43 | Outpatient (BNV) | payer MEDICARE, SELFPAY | PROVIDERS: Admitting Provider Student in an Organized Health Care Education/Training Program; Emergency Provider Student in an Organized Health Care Education/Training Program; PCP Internal Medicine; Visit Provider Physician Assistant | DX: S72.141A Displaced intertrochanteric fracture of right femur, initial encounter for closed fracture (principal) | CPT/HCPCS: 27245; 99024; 99222 ==

== ENCOUNTER 2023-12-12 13:32 | Outpatient (AMB) | payer MEDICARE, SELFPAY ==
--- NOTE | 2023-12-12 13:48 | MHC.OFFVIS ---
Intake Intake Visit Reasons: PO-right hip IM Nail-12/01/23 Intake Note: Mimi is a 78 year old female who presents today for a post op appoitnment s/p right hip IM Nail, 12/01/23 NE. Allergies horseradish [HORSERADISH] Allergy (Severe, Verified 12/12/23 14:00) Involuntary Spasms erythromycin base [ERYTHROMYCIN BASE] Allergy (Intermediate, Verified 12/12/23 14:00) Hives naproxen [From Aleve] Allergy (Intermediate, Verified 12/12/23 14:00) Hives beet [BEET] Allergy (Unknown, Verified 12/12/23 14:00) Unknown milk [MILK] Allergy (Unknown, Verified 12/12/23 14:00) Stomach pain, Vomits nut - unspecified [nut] Allergy (Unknown, Verified 12/12/23 14:00) Unknown raspberry Allergy (Unknown, Verified 12/12/23 14:00) Unknown sunflower seed Allergy (Unknown, Verified 12/12/23 14:00) Unknown aspirin [ASA] Adverse Reaction (Intermediate, Verified 12/12/23 14:00) Nose Bleed TURNIP Allergy (Unknown, Uncoded 12/01/23 14:28) Unknown HPI PO-right hip IM Nail-12/01/23 HPI Details 78 yo female returns to the office today s/p RT hip IMN 12/01/[address] mcallister. She is in rehab and continues to work with PT to ambulate with assistance. She has no concerns today. [facility] Medical History Coronavirus infection Screening for diabetes mellitus MGUS (monoclonal gammopathy of unknown significance) Knee osteoarthritis Impaired glucose tolerance Hypertension History of fracture of femur Osteoporosis Non-toxic multinodular goiter Surgical History Status post fine needle aspiration History of colonoscopy History of cataract surgery History of open reduction and internal fixation (ORIF) procedure History of knee replacement procedure of right knee History of tonsillectomy History of total left knee replacement Hx of removal of cyst History of ankle surgery Hx of hysterectomy Family History Father HTN (hypertension) Mother No problems noted. Social History Housing: House Alcohol intake: current Alcohol intake frequency: 0-2 drinks per day Patient Tobacco Use Status: Never used Tobacco e-Cigarette/Vaping Use: Never Used Second Hand Smoke Exposure: No service: No Current occupational status: employed and retired Cognitive needs: No Hearing needs: No Vision needs: Yes Review of Systems Const All systems reviewed & are unremarkable except as noted in HPI and below Physical Exam Extrem Other: incision clean dry and intact. [place] intact. No erythema or effusion. Calf supple nontender. Neurovascularly intact. Right thigh skin tear to the medial thigh - no drainage Results Reviewed Results Reviewed: Xrays were obtained in the office today and personally reviewed by me of the right hip show intact IMN with stable fracture Assessment & Plan Assessment & Plan (1) Intertrochanteric fracture of right hip: Code(s): S72.141A - Displaced intertrochanteric fracture of right femur, initial encounter for closed fracture Qualifiers: Encounter type: subsequent encounter Fracture type: closed Fracture alignment: displaced Fracture healing: with routine healing Qualified Code(s): S72.141D - Displaced intertrochanteric fracture of right femur, subsequent encounter for closed fracture with routine healing Plan: [place] removed today steri strips applied. She will continue to work with PT/OT wbat, gait training and strengthening. Skin tear wound should be dressed with xeroform and gauze. She will see me back in 4-6 weeks with xrays , sooner if needed. Orders: Orders XR femur RT 2V 12/12/23 S72.142A - Displaced intertrochanteric fracture of left femur, initial encounter for closed fracture Coding Level of Care Code Global (09089) Diagnoses Closed displaced intertrochanteric fracture of right femur with routine healing, subsequent encounter S72.141D Encounter type: subsequent encounter Fracture type: closed Fracture alignment: displaced Fracture healing: with routine healing
== END 2023-12-12 14:42 | disposition home or self-care (01) ==
PROVIDERS: PCP Internal Medicine; Visit Provider Physician Assistant
DX: S72.141D Displaced intertrochanteric fracture of right femur, subsequent encounter for closed fracture with routine healing (principal)
CPT/HCPCS: 99024

== ENCOUNTER → 2023-12-12 13:32 | Outpatient (BNVA) | payer MEDICARE, SELFPAY | PROVIDERS: PCP Internal Medicine; Visit Provider Physician Assistant | DX: S72.141D Displaced intertrochanteric fracture of right femur, subsequent encounter for closed fracture with routine healing (principal) | CPT/HCPCS: 99212 ==

== ENCOUNTER 2023-12-13 08:34 | Outpatient (REF) | payer MEDICARE, SELFPAY ==
--- NOTE | ~2023-12-13 | XR_ITS ---
EXAMINATION: XR FEMUR, RIGHT CLINICAL INFORMATION: Displaced intertrochanteric fracture left femur, initial encounter COMPARISON: Right hip 11/30/2023 TECHNIQUE: AP and lateral views of the right femur were obtained. FINDINGS: Interval placement of short intramedullary daniel and compression screw in the proximal right femur. The intertrochanteric fracture line is still visible. There are small ossific densities noted adjacent to the lesser trochanter. No acute fracture. There is a right total knee prosthesis with patellar button. No evidence of hardware complication. XR/XR femur RT 2V IMPRESSION: Status post ORIF of intertrochanteric fracture of the proximal right femur without evidence of hardware complication.
== END 2023-12-13 08:35 | disposition home or self-care (01) ==
LOC: HO.HOSX 08:34
PROVIDERS: Visit Provider Physician Assistant
DX: S72.141D Displaced intertrochanteric fracture of right femur, subsequent encounter for closed fracture with routine healing (principal)
CPT/HCPCS: 73552